=== PATIENT | male | born 1960 | race Caucasian/White ===

== ENCOUNTER 2016-08-08 19:35 | Inpatient (IN) | payer BC ==
[2016-08-08] VITALS (10 sets, daily range): BP systolic 83–125; BP diastolic 50–72; PULSE 109–113; RESP 13–29; TEMP 97.9; O2SAT 94–97; Ht 172.7 cm; Wt 139.5 kg
[~2016-08-08] VITALS: Ht 172.7 cm; Wt 139.5 kg
[~2016-08-08 19:35] MED LIST: CHOL100047 PO; FENTANYL 100mcg/2ml INJECTION IV ONE; FLEC50TA2 PO; FURO40TA5 PO; INSU100V8 SQ; L.AC1CAP6 PO; MIDAZOLAM 2mg/2ml INJECTION IV ONE; NITR0.4T39 SL; PIOG45TA PO; POTA-81 PO; POTA10TA9 PO; REPA2TAB11 PO; RIVA20TA PO; SALINE FLUSH 10ml SYRINGE IVF ONE; SIMV40TA5 PO; SITA100T12 PO; THIA100T8 PO; UVA URSI PO
--- OUTSIDE RECORDS SUMMARY | 2016-08-08 19:39 | XMS REPORT | Continuity of Care Document ---
Author Author [facility] Organization [facility] Address Unknown Phone Unavailable Support Name Relationship Address Phone MICHELE MULLINS MD Caregiver [address] [place] [address] [place] [address] Unavailable Trudy ALVARENGA MD Caregiver [address] [place] [address] Unavailable JAQUAN STOVALL Next Of Kin [address] [place] [address] Insurance Providers Guarantor Guy Trevino Address [address] [place] [address] Email [email or web address] [facility] Policy Number [id number] Subscriber's Name Guy Trevino Relationship 18 Self Group Number [id number] Advance Directives Directive Response Recorded Date/Time Ordered Resuscitation Status Full Code 09/02/15 6:52am DPOA for Healthcare Only No 09/02/15 6:11am Problems Active Problems Medical Problem Onset Date Status Atrial fibrillation with RVR Unknown Resolved Diabetes mellitus type 2, controlled, without complications Unknown Chronic HTN (hypertension) Unknown Chronic Hyperlipemia Unknown Chronic Lymphedema of both lower extremities Unknown Chronic Morbid obesity due to excess calories Unknown Chronic Paroxysmal atrial fibrillation Unknown Resolved Tricuspid valve regurgitation Unknown Chronic Medications Current Home Medications Medication Dose Units Route Directions Days Qty Instructions Start Date Cholecalciferol (Vitamin D3) (Vitamin D) Unknown Strength Tablet Unknown Dose Oral Daily 06/16/15 Flecainide Acetate 50 Mg Tablet 50 Mg Oral Twice A Day 30 Days 10/09 Furosemide 40 Mg Tablet 40 Mg Oral Daily 06/16/15 Insulin Glargine,Hum.rec.anlog (Lantus) 100 Unit/Ml Inj 30 Unit Sub-Q Bedtime 06/16/15 L.acidoph & Paracasei,B.lactis (Probiotic) 1 Each Capsule 1 Cap Oral Daily 06/16/15 Nitroglycerin 0.4 Mg Tab.subl 0.4 Mg Sublingual as needed for Chest Tightness 09/01/15 Pioglitazone Hcl (Actos) 45 Mg Tablet 1 Tab Oral Daily 09/01/15 Potassium Chloride 20 Meq Tablet.er 20 Meq Oral Give With Breakfast Take 1 tablet, by mouth, daily with breakfast. 09/02/15 Potassium Citrate (Urocit-K) 10 Meq Tablet 1 Tab Oral Three Times A Day 90 Tablet 07/01/15 Repaglinide 2 Mg Tablet 4 Mg Oral Three Times A Day 06/16/15 Rivaroxaban (Xarelto) 20 Mg Tablet 20 Mg Oral Give With Supper 30 Tablet 06/18/15 Simvastatin 40 Mg Tablet 40 Mg Oral Daily 06/16/15 Sitagliptin Phosphate (Januvia) 100 Mg Tablet 100 Mg Oral Bedtime 06/16/15 Thiamine Hcl (Vitamin B-1) 100 Mg Tablet 1 Tab Oral Twice A Day 09/01/15 Uva Ursi 1 Cap Oral As Needed 09/01/15 Past Home Medications Medication Directions Ordered Status Aspirin 81 Mg Tab.chew, 81 Mg Perfusion Daily 06/16/15 Discontinued Potassium Chloride 20 Meq Tab.er.prt, 20 Meq Oral Daily 06/16/15 Discontinued Potassium Citrate 10 Meq Tablet.er, 10 Meq Oral Three Times A Day 06/16/15 Discontinued Potassium Citrate (Urocit-K) 10 Meq Tablet, 10 Meq Oral Three Times A Day Discontinued Sotalol Hcl (Betapace) 80 Mg Tablet, 40 Mg Oral Before Meals Twice A Day Discontinued Social History Social History Problem Response Recorded Date/Time Onset Date Status Hx Substance Use No 09/01/2015 10:14am Not Applicable Not Applicable Hx Alcohol Use Y BEER OCCASIONALLY 09/01/2015 10:14am Not Applicable Not Applicable Has the pt used tobacco in the last 12 months No 09/01/2015 10:14am Not Applicable Not Applicable Tobacco Usage none 06/16/2015 9:19pm Not Applicable Not Applicable Query Response Start Date Stop Date Smoking Status Never smoker Hospital Discharge Instructions Instructions: Care Instructions: Reason for Hospitalization: Precordial pain, left heart catherization no PCI I was in the hospital because (patient own words): heart cath Discharge Diet: Resume regular diet Discharge Activity: See [facility] Heart Cath Trans Radial instructions. Follow Up Appointments: Follow up with Dr. Mullins in the office on 09/29/15 at 10:[address] Uribe office for the referrel appointment time for an file clerk to discusse ablation for atrial fibrillation - Dr. Mulilns's office will call patient with a date and time of appointment with [facility] Administrator. Make sure patient takes Heart Catheterization Disk. Pending Lab / Results: No Pending Lab Wound/Incision Care: You may remove the dressing tomorrow, Keep your wrist straight fo 48 hours, no bending Notify Physician If: Any concerns Condition at time of discharge: Good Plan of Care Discharge Date 09/02/15 11:30am Instructions/Education Provided [facility] Heart Cath Trans Rad Prescriptions See Medication Section Functional Status Query Response Date Recorded Mobility Status Ambulatory September 02, 2015 7:12am Assistive Devices None September 02, 2015 7:12am Activity Limitations None September 02, 2015 7:12am Feeding Ability Independent September 02, 2015 7:12am Toileting Ability Independent September 02, 2015 7:12am Grooming Ability Independent September 02, 2015 7:12am Dressing Ability Independent September 02, 2015 7:12am Driving Ability Independent September 02, 2015 7:12am Housework Ability Independent September 02, 2015 7:12am Meal Preparation Ability Independent September 02, 2015 7:12am Stair Climbing Ability Independent September 02, 2015 7:12am Ability to complete ADL's impeded by No change September 02, 2015 7:12am Cognitive/Perceptual Impairments None September 02, 2015 7:12am Visual Assistive Devices Glasses With patient September 02, 2015 7:12am Preferred Method of Learning Reading Listening September 02, 2015 7:12am Allergies, Adverse Reactions, Alerts Allergen Type Severity Reaction Status Last Updated Sulfa (Sulfonamide Antibiotics) Allergy Severe ANAPHYLAXIS Active 07/01/15 Immunizations Query Response on File Recorded Date/Time Hx Influenza Vaccination Y fall09/01/15 10:14am Hx Pneumococcal Vaccination Y 2004 UNSURE OF MONTH 09/01/15 10:14am Hx Influenza Vaccination Y fall09/01/15 10:14am Influenza Vaccine Hx NO 06/16/15 7:12pm Vital Signs Acute Vital Signs Vital Response Date/Time Temperature (Fahrenheit) 97.7 deg F (96.8 - 99.1) 09/02/2015 8:45am Temperature (Calculated Celsius) 36.20161 degrees C (36.0 - 37.3) 09/02/2015 8:45am Temperature Source Oral 09/02/2015 8:45am Pulse Rate (adult) 67 bpm (60 - 100) 09/02/2015 10:45am Respiratory Rate 16 breaths/min (10 - 20) 09/02/2015 10:45am O2 Sat by Pulse Oximetry 96 % (90 - 100) 09/02/2015 10:45am Oxygen Delivery Method Room Air 09/02/2015 10:45am Oxygen Delivery Method Room Air 09/02/2015 6:06am Oxygen Flow Rate 1.00 L/min 06/18/2015 4:45pm Blood Pressure 110/66 mm Hg 09/02/2015 10:45am Blood Pressure Source Automatic Cuff 09/02/2015 10:45am Height (Feet) 5 feet 09/02/2015 6:08am Height (Inches) 8.00 inches 09/02/2015 6:08am Weight (Kilograms) 154.300 kg 09/02/2015 7:05am Body Mass Index (BMI) 51.7 09/02/2015 6:08am Results Laboratory Results Test Name Result Units Flags Reference Collection Date/Time Result Date/ Time Comments Prothromb Time International Ratio 0.95 0.81-1.09 06/16/2015 6:40pm 06/16/2015 6:56pm THERAPUTIC RANGE=2.00-3.00 FOR ANTI-THROMBOSIS THERAPUTIC RANGE=2.50-3.50 FOR IMPLANTED VALVE Activated Partial Thromboplast Time 31.9 SEC 24-36 06/16/2015 6:40pm 6:56pm Troponin I < 0.012 ng/ml 0-0.12 06/17/2015 12:38pm 06/17/2015 1:18pm Troponin values with a difference of 55% increase from orginal troponin value represent a true biological DELTA value. (%increase Calc=Orginal Troponin value, divided by subsequent Troponin value, multiplied by 100) KS-Gph-L-Type Natriuretic Peptide 83 PG/ML 0-175 06/16/2015 6:40pm 7:10pm Rule in cut points: <50 years old=450; 50-75 years old=900; >75 years old=1800; When utilizing ProBNP rule-in cut points, adjustment for impaired renal function is typically not required. Hemoglobin A1c 7.1 % 6.1-7.9 06/16/2015 6:40pm 06/16/2015 8:33pm <6.0 NON-DIABETIC RANGE 6.1-7.9 [facility] TARGET RANGE >8.0 ACTION SUGGESTED Total Bilirubin 1.70 MG/DL H 0.20-1.30 07/01/2015 10:53am 07/01/2015 11: 25am Alkaline Phosphatase 43 U/L 38-126 07/01/2015 10:53am 07/01/2015 11: 25am Total Protein 6.5 G/DL 6.3-8.2 07/01/2015 10:53am 07/01/2015 11:25am Albumin 3.9 G/DL 3.5-5.0 07/01/2015 10:53am 07/01/2015 11:25am Globulin 2.6 G/DL 2.4-3.6 07/01/2015 10:53am 07/01/2015 11:25am Albumin/Globulin Ratio 1.5 RATIO 1.1-2.2 07/01/2015 10:53am 07/01/2015 11:25am Aspartate Amino Transf (AST/SGOT) 27 U/L 17-59 07/01/2015 10:53am 06/30 11:25am Alanine Aminotransferase (ALT/SGPT) 40 U/L 21-72 07/01/2015 10:53am 08/2015 11:25am Magnesium Level 2.1 MG/DL 1.6-2.3 07/01/2015 10:53am 07/01/2015 11: 25am Free Thyroxine 0.88 NG/DL 0.78-2.19 07/01/2015 10:53am 07/01/2015 11: 44am Thyroid Stimulating Hormone (TSH) 1.30 MIU/L 0.47-4.68 07/01/2015 10: 53am 07/01/2015 11:54am Glucometer 159 mg/dL H 75-110 07/01/2015 8:29pm 07/01/2015 8:40pm White Blood Count 7.4 T/MM3 4.5-11.0 09/02/2015 7:13am 09/02/2015 7: 32am Red Blood Count 5.44 M/MM3 4.50-5.90 09/02/2015 7:09/02/2015 7: 32am Hemoglobin 16.3 GM/DL 13.5-17.5 09/02/2015 7:09/02/2015 7:32am Hematocrit 48.2 % 41-53 09/02/2015 7:09/02/2015 7:32am Mean Corpuscular Volume 88.6 UM3 80-100 09/02/2015 7:09/02/2015 7: 32am Mean Corpuscular Hemoglobin 30.0 UUG 26-34 09/02/2015 7:2015 7:32am Mean Corpuscular Hemoglobin Concent 33.8 GM/DL 31-37 09/02/2015 7:09/02/2015 7:32am RDW Standard Deviation 42.5 FL 36.9-50.2 09/02/2015 7:09/02/2015 7 :32am Platelet Count 162 T/MM3 130-400 09/02/2015 7:09/02/2015 7:32am Mean Platelet Volume 10.7 UM3 9.4-12.4 09/02/2015 7:09/02/2015 7: 32am Neutrophils (%) (Auto) 57.4 % 33-66 09/02/2015 7:09/02/2015 7: 32am Lymphocytes (%) (Auto) 33.1 % 23-45 09/02/2015 7:09/02/2015 7: 32am Monocytes (%) (Auto) 6.8 % 0-9.0 09/02/2015 7:09/02/2015 7:32am Eosinophils (%) (Auto) 2.3 % 0-4 09/02/2015 7:09/02/2015 7:32am Basophils (%) (Auto) 0.3 % 0-2 09/02/2015 7:09/02/2015 7:32am Immature Granulocyte % (Auto) 0.1 % 0.0-0.5 09/02/2015 7:2015 7:32am Absolute Neutrophils (auto) 4.3 T/MM3 1.8-7.7 09/02/2015 7:2015 7:32am Absolute Lymphocytes (auto) 2.5 T/MM3 1-4.8 09/02/2015 7:2015 7:32am Absolute Monocytes (auto) 0.5 T/MM3 0-0.8 09/02/2015 7:09/02/2015 7:32am Absolute Eosinophils (auto) 0.2 T/MM3 0-0.5 09/02/2015 7:2015 7:32am Absolute Basophils (auto) 0.0 T/MM3 0-0.2 09/02/2015 7:09/02/2015 7:32am Absolute Immature Granulocyte (auto 0.01 T/MM3 0.00-0.03 09/02/2015 7: 09/02/2015 7:32am Icterus Index < 2 0-7 09/02/2015 7:09/02/2015 7:55am Chemistry Specimen Hemolysis < 15 0-25 09/02/2015 7:09/02/2015 7 :55am 0-25: Specimen Exhibited No Hemolysis. Turbidity < 20 0-20 09/02/2015 7:09/02/2015 7:55am Sodium Level 143 MEQ/L 134-144 09/02/2015 7:09/02/2015 7:55am Potassium Level 4.0 MEQ/L 3.6-5 09/02/2015 7:09/02/2015 7:55am Chloride Level 109 MEQ/L H 98-107 09/02/2015 7:09/02/2015 7:55am Carbon Dioxide Level 24 MEQ/L 22-30 09/02/2015 7:09/02/2015 7: 55am Anion Gap 10 MEQ/L 5-15 09/02/2015 7:09/02/2015 7:55am Blood Urea Nitrogen 17.0 MG/DL 9-20 09/02/2015 7:09/02/2015 7: 55am Creatinine 0.8 MG/DL 0.8-1.5 09/02/2015 7:09/02/2015 7:55am BUN/Creatinine Ratio 21 RATIO 6-26 09/02/2015 7:09/02/2015 7:55am Glomerular Filtration Rate Calc 100 09/02/2015 7:09/02/2015 7: 55am Glucose Level 143 MG/DL H 75-110 09/02/2015 7:13am 09/02/2015 7:55am Calculated Osmolality 279 MOSM/KG 261-280 09/02/2015 7:13am 09/02/2015 7:55am Calcium Level 9.1 MG/DL 8.4-10.2 09/02/2015 7:13am 09/02/2015 7:55am Procedures Procedure Status Date Provider(s) ECHO TRANSESOPHAGEAL Completed 06/17/15 MICHELE MULLINS MD CARDIOVERSION ELECTRIC EXT Completed 06/17/15 MICHELE MULLINS MD ULTRASONOGRAPHY OF RIGHT AND LEFT HEART, TRANSESOPHAGEAL Completed 06/17/15 MICHELE MULLINS MD SPIRITISM OF CARDIAC RHYTHM, SINGLE Completed 06/17/15 MICHELE MULLINS MD ROUTINE VENIPUNCTURE Completed 07/01/15 COMPREHEN METABOLIC PANEL Completed 07/01/15 REAGENT STRIP/BLOOD GLUCOSE Completed 07/01/15 ASSAY OF MAGNESIUM Completed 07/01/15 ASSAY OF FREE THYROXINE Completed 07/01/15 ASSAY THYROID STIM HORMONE Completed 07/01/15 COMPLETE CBC W/AUTO DIFF WBC Completed 07/01/15 ELECTROCARDIOGRAM TRACING Completed 07/01/15 ELECTROCARDIOGRAM TRACING Completed 07/01/15 THER/PROPH/DIAG INJ SC/IM Completed 07/01/15 INITIAL OBSERVATION CARE Completed 07/01/15 INITIAL OBSERVATION CARE Completed 07/01/15 INITIAL OBSERVATION CARE Completed 07/01/15 INITIAL OBSERVATION CARE Completed 07/01/15 401266"INJECTION, INSULIN, PER 5 UNITS" Completed 07/01/15 Encounters Encounter Location Arrival/Admit Date Discharge/Depart Date Attending Provider Departed Clinic [facility] 09/02/15 5:50am 09/02/15 11:30am MICHELE MULLINS MD Discharged Inpatient (obs) [facility] 07/01/15 7:49am 07/02/15 2: 08pm MICHELE MULLINS MD Discharged Inpatient [facility] 06/17/15 3:14pm 06/18/15 5:10pm KENIA CHRISTY MD
--- OUTSIDE RECORDS SUMMARY | 2016-08-08 19:39 | XMS REPORT ---
Author Author Maureen Garcia [facility] eClinicalWorks Address Unknown Phone Unavailable Care Team Providers Care Residential Mortgage Underwriter Name Role Phone Maureen Garcia CP Unavailable Allergies No Known Allergies Problems Problem Type Condition Code Onset Dates Condition Status Problem Atrial fibrillation I48.91 Active Medications No Known Medications Results No Known Results Summary Purpose eClinicalWorks Submission
--- OUTSIDE RECORDS SUMMARY | 2016-08-08 19:39 | XMS REPORT ---
Author Author Maureen Garcia Organization [employer] Address Unknown Phone Unavailable Care Team Providers Care Division Chief Name Role Phone Maureen Garcia CP Unavailable Allergies No Known Allergies Problems Problem Type Condition Code Onset Dates Condition Status Problem Atrial fibrillation I48.91 Active Medications No Known Medications Results No Known Results Summary Purpose eClinicalWorks Submission
--- OUTSIDE RECORDS SUMMARY | 2016-08-08 19:40 | XMS REPORT ---
Author Author Maureen Garcia Organization [employer] Address Unknown Phone Unavailable Care Team Providers Care Eligibility Worker Name Role Phone Maureen Garcia CP Unavailable Allergies No Known Allergies Problems Problem Type Condition Code Onset Dates Condition Status Problem Atrial fibrillation I48.91 Active Medications No Known Medications Results No Known Results Summary Purpose eClinicalWorks Submission
--- OUTSIDE RECORDS SUMMARY | 2016-08-08 19:40 | XMS REPORT ---
Author Author Maureen Garcia [facility] e[employer] Address Unknown Phone Unavailable Care Team Providers Care Bricklayer Supervisor Name Role Phone Maureen Garcia CP Unavailable Allergies, Adverse Reactions, Alerts Substance Reaction Event Type Sulfa anaphylaxis Drug Allergy Problems Problem Type Condition Code Onset Dates Condition Status Assessment Atrial fibrillation I48.91 Active Assessment High risk medication use Z79.899 Active Problem Atrial fibrillation I48.91 Active Assessment Chronic anticoagulation Z79.01 Active Medications Medication Code System Code Instructions Start Date End Date Status Dosage Flecainide Acetate [facility] [address]-33 50 MG Orally Twice a day 1 tablet Potassium Chloride ER [facility] [address]-89 20 MEQ Orally Once a day 1 tablet with food Lasix [facility] [address]-40 40 MG Orally Once a day [address] [facility] [address]-26 100 UNIT/ML Subcutaneous not defined Nitroglycerin [facility] [address]-79 0.4 MG Sublingual not defined Zocor [facility] [address]-69 40 MG Orally Once a day 1 tablet in the evening Xarelto [facility] [address]-19 20 MG Orally Once a day 1 tablet with food Victoza [facility] [address]-92 18 MG/3ML Subcutaneous Once a day 0.2 ml MetFORMIN HCl ER [facility] [address]-44 750 MG Orally Twice a day 1 tablet with evening meal Urocit-K [address] [facility] [address]-95 10 MEQ (1080 MG) Orally Three times a day 1 tablet Procedures Procedure Coding System Code Date Office Visit, Est Pt., Level 4 CPT-4 50550 Jan 14, 2016 ELECTROCARDIOGRAM, COMPLETE CPT-4 30163 Jan 14, 2016 Vital Signs Date/Time: Jan 14, 2016 BMI 49.44 Index Weight 325.2 lbs Height 68 in Cardiac Monitoring Heart Rate 90 /min Oximetry 97 % Blood Pressure Diastolic 60 mm Hg Blood Pressure Systolic 130 mm Hg Results Name Result Date Reference Range Unit Abnormality Flag AtriaECW Summary Purpose eClinicalWorks Submission
--- OUTSIDE RECORDS SUMMARY | 2016-08-08 19:40 | XMS REPORT ---
Author Author Maureen Garcia [facility] eClinicalWorks Address Unknown Phone Unavailable Care Team Providers Care Mucking Machine Operator Name Role Phone Maureen Garcia CP Unavailable Allergies, Adverse Reactions, Alerts Substance Reaction Event Type Sulfa anaphylaxis Drug Allergy Problems Problem Type Condition Code Onset Dates Condition Status Assessment Atrial fibrillation I48.91 Active Assessment High risk medication use Z79.899 Active Problem Atrial fibrillation I48.91 Active Assessment Chronic anticoagulation Z79.01 Active Medications Medication Code System Code Instructions Start Date End Date Status Dosage Januvia [facility] [address]-19 100 MG Orally Once a day 1 tablet Zocor [facility] [address]-67 40 MG Orally Once a day 1 tablet in the evening Lantus [facility] [address]-91 100 UNIT/ML Subcutaneous not defined Potassium Chloride ER [facility] [address]-33 20 MEQ Orally Once a day 1 tablet with food Urocit-K 10 [facility] [address]-86 10 MEQ (1080 MG) Orally Three times a day 1 tablet Xarelto [facility] [address]-97 20 MG Orally Once a day 1 tablet with food Actos [facility] [address]-52 45 MG Orally Once a day 1 tablet Lasix [facility] [address]-63 40 MG Orally Once a day 1 tablet Nitroglycerin [facility] [address]-65 0.4 MG Sublingual not defined Flecainide Acetate [facility] [address]-65 50 MG Orally Twice a day 1 tablet Prandin [facility] [address]-65 2 MG Orally tid 2 tablets Vitamin B-1 [facility] [address]-39 100 MG Orally Once a day 1 tablet Procedures Procedure Coding System Code Date Office Visit, Est Pt., Level 4 CPT-4 09573 October 22, 2015 ELECTROCARDIOGRAM, COMPLETE CPT-4 64554 October 22, 2015 Vital Signs Date/Time: October 22, 2015 BMI 52.45 Index Weight 345 lbs Height 68 in Cardiac Monitoring Heart Rate 81 /min Oximetry 96 % Blood Pressure Diastolic 64 mm Hg Blood Pressure Systolic 116 mm Hg Results Name Result Date Reference Range Unit Abnormality Flag AtriaECW Summary Purpose eClinicalWorks Submission
--- OUTSIDE RECORDS SUMMARY | 2016-08-08 19:40 | XMS REPORT ---
Author Author Maureen Garcia [facility] eClinicalWorks Address Unknown Phone Unavailable Care Team Providers Care Biofuels Technology Manager Name Role Phone Maureen Garcia CP Unavailable Allergies No Known Allergies Problems Problem Type Condition Code Onset Dates Condition Status Problem Atrial fibrillation I48.91 Active Medications No Known Medications Results No Known Results Summary Purpose eClinicalWorks Submission
[2016-08-08] MEDS ORDERED: DILTIAZEM 25mg/5ml INJECTION IV ONE (19:45)
[2016-08-08] MEDS ORDERED: NORMAL SALINE 1,000 ML IV ONE (19:45)
--- NOTE | 2016-08-08 19:50 | ERPDOC ---
Departure Disposition Decision Date: August 08, 2016 Disposition Decision Time: 21:22 Disposition: 01 DISCHARGED HOME, SELF-CARE Impression Impression Impression: Primary Impression: Atrial fibrillation with RVR Severity: Severe Condition: Improved Seen By: Physician only Referrals: Trudy ALVARENGA MD (Family) Problems/Meds/Labs Reviewed?: Yes Medications reviewed and manag: Yes Follow up care ordered?: Yes Mental Status: Alert Critical Care Note Total Time (mins): 45 Critical Care Spent: [id number] care of pt, Reviewing test results, Discuss the case w/staff, Documenting the MR, Discussion w/ family/DPOA During this visit the pt was: Critically Ill, At Risk of Deterioration HPI - Cardiac General Stated Complaint: HEART ISSUES Time Seen by Provider: 19:36 Source: patient Exam Limitations: no limitations HPI - Cardiac General Initial Comments Patient has had pounding palpitations with tachycardia for at least 2 hours. Similar to atrial fibrillation with RVR in the past, but much more severe. Last year the patient had a similar episode, ended up in the ICU overnight on amiodarone drip, was placed on flecainide, and eventually had ablation and was able to get off all of his medications. Early the patient takes no medications for blood pressure or 8 for ablation. Tubes began when the patient was mowing his lawn this afternoon, he noticed rapid heart rate, shortness of breath, and a pounding in his chest. Patient took one nitroglycerin at home, without relief. Occurred At: home Onset/Timing: Rapid Duration: 1-3 hrs Severity: moderate Location: substernal Nitro Today/Relief: 0.4 mg x 1 Aspirin Today: unknown Associated Symptoms: shortness of breath, DENIES: chest pain, cough, diaphoresis, headaches, loss of appetite, malaise, nausea/vomiting, rash, seizure, syncope, weakness Hx of Similar Symptoms: Yes Allergies: Coded Allergies: Sulfa (Sulfonamide Antibiotics) (Verified Allergy, Severe, ANAPHYLAXIS, 07/01/15) Past History Patient Medical History Problem List Updates: Obesity Past Medical History Metabolic: diabetes ENMT: sleep apnea, snoring Cardiac: A-fib GI: GERD Male: kidney stones Musculoskeletal: osteoarthritis Surgical History General: hernia Cardiac: cardiac cath Reproductive/: other Joint: knee Family History Family PMH: FOUND: CAD, [place], diabetes, hypertension Vaccines Hx Influenza Vaccination: Yes (2012 FALL) Hx Pneumococcal Vaccination: Yes (2004 UNSURE OF MONTH) Social History Smoking Status: Never smoker Does patient use chewing tobac: No Second Hand Exposure: No Substance Use Type: does not use Alcohol Intake: none Review of Systems Constitutional Constitutional: DENIES: appetite decrease, appetite increase, chills, dizziness , fever, weakness ENMT Ears: DENIES: pain Hearing: DENIES: hearing loss, tinnitus Balance: DENIES: vertigo Mouth/Throat: DENIES: change in swallowing, change in voice, hoarsness, painful swallowing, sore throat Cardiovascular Cardiac: chest pain, DENIES: dyspnea on exertion Rhythm/Rate: palpitations, tachycardia, DENIES: irregular beat Vascular: DENIES: atrophy, intermittent claudication, pedal edema, phlebitis Pulmonary Respiratory: DENIES: cough, dyspnea, pleuritic chest pain GI Upper Abdomen: DENIES: dysphagia, heartburn/indigestion, nausea, pain, vomiting Lower Abdomen: DENIES: blood in stool, constipation, diarrhea, pain General: DENIES: burning, dysuria, frequency, pain, urgency Musculoskeletal General: DENIES: cramps, joint pain, joint swelling, pain, weakness Integumentary Skin: DENIES: rash, sores Neurological General: DENIES: headache, numbness, tingling, vertigo, weakness Psychiatric Psychiatric: DENIES: anxiety, depression, nervousness Physical Exam General General Nourishment: well nourished, well developed, appears stated age, no acute distress, obese General Body Habitus: well groomed Vitals and Pain First Documented Vital Signs Date Time Temp Pulse Resp B/P Pulse Ox O2 Delivery O2 Flow Rate FiO2 08/08/16 19:35 97.6 212 18 94 Room Air Weight: Kilograms: Height (feet): 5 Height (inches): 8.00 Triage Pain Scale: RN VS reviewed by Provider: Yes Normal Exams: Head: Normocephalic w/o trauma Eyes: Pupils are PERRLA w/ EOMI, No scleral icterus, irritation, or foreign bodies noted ENMT: No facial trauma, nasal exudates, pharyngeal erythema, or exudates are noted Neck: Full range of motion, without adenopathy, JVD, bruits or thyromegaly Abdomen: Bowel sounds positive, soft, non-tender, non-distended, no hepatosplenomegaly, masses or bruits noted Lymphatic: No lymphadenopathy, or lymphedema noted Musculoskeletal: No tenderness, or deformity noted, good range of motion, all extremities Integumentary: No rashes, hives, or bruising noted, hair and nails, without abnormality Neurologic: Patient is alert, and oriented, cranial nerves, motor/sensory/ cerebellar, exams w/o gross deficits, to observation Psychiatric: Patient exhibits, appropriate attention, emotion and affect Cardiovascular (brief) Cardiac: NOT FOUND: click, gallop, murmur, pedal edema, regular rate, regular rhythm (irregularly irregular tachycardia) Capillary Refill: <2 sec Pulses: all distal extremities, equal, strong Abdomen (brief) Abdominal Brief: FOUND: bowel normo active x4, soft, NOT FOUND: distended, hepatosplenomegaly, tender Progress Results/Orders Orders Procedure Category Date Status Time Iv Lock (Ed Only) EDM 08/08/16 Transmitted 19:43 Cbc W/Auto LAB 08/08/16 Complete Diff-Reflex Manual Cmp - Comprehensive LAB 08/08/16 Complete Metabolic EKG EKG 08/08/16 Taken Troponin I W LAB 08/08/16 Complete Hemolysis Index Diltiazem (Cardizem*) PHA 08/08/16 Complete Iv Bolus (Cardizem 19:45 Normal Saline (Normal PHA 08/08/16 Complete Saline Iv) 19:45 EKG EKG 08/08/16 Logged Lab Results Laboratory Tests Test 08/08/16 19:58 White Blood Count 10.5T/MM3 Red Blood Count 5.44M/MM3 Hemoglobin 16.3GM/DL Hematocrit 46.6% Mean Corpuscular Volume 85.7UM3 Mean Corpuscular Hemoglobin 30.0UUG Mean Corpuscular Hemoglobin Concent 35.0GM/DL RDW Standard Deviation 41.1FL Platelet Count 260T/MM3 Mean Platelet Volume 10.3UM3 Immature Granulocyte % (Auto) 0.3% Neutrophils (%) (Auto) 63.6% Lymphocytes (%) (Auto) 27.9% Monocytes (%) (Auto) 6.1% Eosinophils (%) (Auto) 1.8% Basophils (%) (Auto) 0.3% Absolute Immature Granulocyte (auto 0.03T/MM3 Absolute Neutrophils (auto) 6.7T/MM3 Absolute Lymphocytes (auto) 2.9T/MM3 Absolute Monocytes (auto) 0.6T/MM3 Absolute Eosinophils (auto) 0.2T/MM3 Absolute Basophils (auto) 0.0T/MM3 Turbidity < 20 Sodium Level 146MEQ/L Potassium Level 4.1MEQ/L Chloride Level 108MEQ/L Carbon Dioxide Level 22MEQ/L Anion Gap 16MEQ/L Blood Urea Nitrogen 17.0MG/DL Creatinine 1.3MG/DL Glomerular Filtration Rate Calc 57 BUN/Creatinine Ratio 13RATIO Glucose Level 216MG/DL Calculated Osmolality 290MOSM/KG Calcium Level 9.5MG/DL Total Bilirubin 1.50MG/DL Icterus Index < 2 Aspartate Amino Transf (AST/SGOT) 32U/L Alanine Aminotransferase (ALT/SGPT) 47U/L Alkaline Phosphatase 69U/L Troponin I 0.022ng/ml Total Protein 6.9G/DL Albumin 4.4G/DL Globulin 2.5G/DL Albumin/Globulin Ratio 1.8RATIO Chemistry Specimen Hemolysis 34 Medications Current ED Medications Diltiazem HCl 25 mg 25 mg O ONCE IV Last administered on 08/08/16 19:46; Start 08/08/16 at 19:45; Stop 08/08/16 at 19:46; Status DC Sodium Chloride (Normal Saline IV) 1,000 ml @ 0 mls/hr Q0M ONCE IV Last administered on 08/08/16 19:55; Start 08/08/16 at 19:45; Stop 08/08/16 at 19:46 ; Status DC Progress Progress EKG shows atrial fibrillation with rapid ventricular rate in the 200s. Patient given Cardizem 125 mg IV, 1 L normal saline IV fluid bolus -heart rate much improved but, with initial hypotension that improved as pulse normalized and IV fluids infused CBC - n CMP - n Troponin - n Patient has remained in atrial flutter/tachycardia with improved but persistent rapid ventricular response Case is discussed with Dr. Ayala who would like the patient placed in the CCU tonight, placed on a Cardizem drip at 15 mg/h, given one dose of Lovenox and one dose of digoxin. CECIL GALLARDO MD August 08, 2016 19:50
[2016-08-08 20:08] LABS: BASOPHILS % (AUTO) 0.3 % (0-2); EOSINOPHILS # (AUTO) 0.2 T/MM3 (0-0.5); EOSINOPHILS % (AUTO) 1.8 % (0-4); HCT - HEMATOCRIT 46.6 % (41-53); HGB - HEMOGLOBIN 16.3 GM/DL (13.5-17.5); IMMATURE GRANULOCYTE # (AUTO) 0.03 T/MM3 (0.00-0.03); IMMATURE GRANULOCYTE % (AUTO) 0.3 % (0.0-0.5); LYMPHOCYTES # (AUTO) 2.9 T/MM3 (1-4.8); LYMPHOCYTES % (AUTO) 27.9 % (23-45); MEAN CORPUSCULAR VOLUME 85.7 UM3 (80-100); MEAN PLATELET VOLUME 10.3 UM3 (9.4-12.4); MONOCYTES # (AUTO) 0.6 T/MM3 (0-0.8); MONOCYTES % (AUTO) 6.1 % (0-9.0); NEUTROPHILS #(AUTO)-ABSOLUTE 6.7 T/MM3 (1.8-7.7); NEUTROPHILS % (AUTO) 63.6 % (33-66); RED BLOOD COUNT 5.44 M/MM3 (4.50-5.90); WBC - WHITE BLOOD COUNT 10.5 T/MM3 (4.5-11.0)
[2016-08-08 20:14] LABS: ALBUMIN 4.4 G/DL (3.5-5.0); ALBUMIN/GLOBULIN RATIO 1.8 RATIO (1.1-2.2); ALKALINE PHOSPHATASE 69 U/L (38-126); ALT (SGPT) 47 U/L (21-72); ANION GAP 16 MEQ/L (5-15); AST (SGOT) 32 U/L (17-59); BUN/CREATININE RATIO 13 RATIO (6-26); CALCIUM 9.5 MG/DL (8.4-10.2); CHLORIDE 108 MEQ/L (98-107); CO2 - CARBON DIOXIDE 22 MEQ/L (22-30); CREATININE 1.3 MG/DL (0.8-1.5); GLOMERULAR FILTRATION RATE 57; GLUCOSE 216 MG/DL (75-110); POTASSIUM 4.1 MEQ/L (3.6-5); SODIUM 146 MEQ/L (134-144); TOTAL PROTEIN 6.9 G/DL (6.3-8.2)
[2016-08-08] MEDS ORDERED: INSU300I SQ (20:21)
[2016-08-08] MEDS ORDERED: MAGN100T3 PO (20:21)
[2016-08-08] MEDS ORDERED: METF750T2 PO (20:21)
[2016-08-08] MEDS ORDERED: ASPI-1160 PO (20:21)
[2016-08-08] MEDS ORDERED: LIRA0.6P2 SQ (20:21)
--- NOTE | 2016-08-08 20:51 | NUR ---
STATUS PT WENT FROM HEART RATED 212 DOWN TO 112. PT REPORTS FEELING BETTER, BUT STILL HAS CHEST PAIN RATED 2/10
[2016-08-08] MEDS ORDERED: ENOXAPARIN 120 MG/0.8 ML INJECTION SQ ONE (21:30)
[2016-08-08] MEDS ORDERED: DIGOXIN 500mcg/2ml INJECTION IV ONE (21:30)
--- NOTE | 2016-08-08 21:40 | NUR ---
REPORT CALLED REPORT TO MATT VALDOVINOS
--- NOTE | 2016-08-08 21:55 | NUR ---
DEPART PT IS TAKEN BY CART, AND MONITOR TO ICU. ACCOMPANIES. PT REMAINS FREE FROM CHEST PAIN
--- NOTE | 2016-08-08 21:55 | NUR ---
Admit To CCU 5 at this time, in no acute distress, will continue to monitor.
[2016-08-08] MEDS: DILTIAZEM 125 MG in NORMAL SALINE 125 ML IV SCH (22:20)
--- NOTE | 2016-08-08 22:30 | NUR ---
Insulin Jesi NEGRETE with Dr. Ayala gave telephone orders for insulin per pt's home routine, pt verbalizes that he normally takes Novolog 15 units with meals and Toujeo 80 units at HS. No Toujeo stocked in house, pt does not have pen with him. Pt states that he was previously taking Lantus 80 units at HS and would like to have that instead of sending his home for the Toujeo pen. call center specialist pharmacist Jerzy contacted and agrees.
[2016-08-08] MEDS: INSULIN ASPART 100 UNIT/ML SQ SCH (22:39)
[2016-08-08 22:40] LABS: PROBNP 438 PG/ML (0-175)
[2016-08-08] MEDS: INSULIN GLARGINE 100 UNIT/ML SQ SCH (22:43)
[2016-08-09] VITALS (87 sets, daily range): BP systolic 97–182; BP diastolic 51–113; PULSE 69–149; RESP 8–37; TEMP 97.6–98.6; O2SAT 90–99
--- NOTE | 2016-08-09 | NUR ---
CPAP pt states he has sleep apnea but did not bring his CPAP, no issues with o2 thus far, will continue to monitor.
[2016-08-09 05:11] LABS: BASOPHILS % (AUTO) 0.3 % (0-2); EOSINOPHILS # (AUTO) 0.2 T/MM3 (0-0.5); EOSINOPHILS % (AUTO) 2.6 % (0-4); HCT - HEMATOCRIT 43.6 % (41-53); HGB - HEMOGLOBIN 15.1 GM/DL (13.5-17.5); IMMATURE GRANULOCYTE # (AUTO) 0.01 T/MM3 (0.00-0.03); IMMATURE GRANULOCYTE % (AUTO) 0.1 % (0.0-0.5); LYMPHOCYTES # (AUTO) 2.5 T/MM3 (1-4.8); LYMPHOCYTES % (AUTO) 36.1 % (23-45); MEAN CORPUSCULAR HGB 29.9 UUG (26-34); MEAN CORPUSCULAR HGB CONC(MCHC 34.6 GM/DL (31-37); MEAN CORPUSCULAR VOLUME 86.3 UM3 (80-100); MEAN PLATELET VOLUME 10.5 UM3 (9.4-12.4); MONOCYTES # (AUTO) 0.6 T/MM3 (0-0.8); MONOCYTES % (AUTO) 7.8 % (0-9.0); NEUTROPHILS #(AUTO)-ABSOLUTE 3.7 T/MM3 (1.8-7.7); NEUTROPHILS % (AUTO) 53.1 % (33-66); RED BLOOD COUNT 5.05 M/MM3 (4.50-5.90)
[2016-08-09 05:48] LABS: ANION GAP 13 MEQ/L (5-15); BUN/CREATININE RATIO 21 RATIO (6-26); CALCIUM 9.4 MG/DL (8.4-10.2); CHLORIDE 108 MEQ/L (98-107); CO2 - CARBON DIOXIDE 26 MEQ/L (22-30); CREATININE 0.9 MG/DL (0.8-1.5); GLOMERULAR FILTRATION RATE 87; GLUCOSE 83 MG/DL (75-110); MAGNESIUM 2.2 MG/DL (1.6-2.3); POTASSIUM 3.7 MEQ/L (3.6-5); SODIUM 147 MEQ/L (134-144)
[2016-08-09] MEDS: DILTIAZEM 125 MG in NORMAL SALINE 125 ML IV SCH (05:50)
[2016-08-09] MEDS ORDERED: D5NS 1,000 ML IV SCH (09:00)
[2016-08-09] MEDS ORDERED: SALINE FLUSH 10ml SYRINGE ONE (10:29)
--- NOTE | 2016-08-09 11:22 | NUR ---
CM CM IN TO VISIT PATIENT, HE IS A&O. NO FAMILY IS PRESENT AT THIS TIME. PATIENT PLANS TO DISCHARGE HOME, DENIES NEEDS. CM CONTACT INFORMATION PROVIDED. GINOE SCORE IS 4, NO FURTHER FOLLOW UP IS INDICATED. Addendum: 08/09/16 at 1123 by SHAYLEE JUDD RN Amended: Links added.
--- NOTE | 2016-08-09 12:18 | HPPDOC ---
HPI - Adult Date DATE: 08/09/16 TIME: 11:32 General Date of Admission Date of Admission: August 08, 2016 at 21:24 Chief Complaint: atrial fibrillation History of Present Illness Guy is a 55 year old male who is well known to Dr. Ayala who has a history paroxysmal atrial fibrillation. mixed HLD and DM type II who was admitted to CCU last night from the ED with A Fib with RVR. Yesterday afternoon he had pounding palpitations with tachycardia for at least 2 hours. Similar to atrial fibrillation with RVR in the past, but much more severe. It began when the patient was mowing his lawn this afternoon, he noticed rapid heart rate, shortness of breath, and a pounding in his chest. He took one nitroglycerin at home, without relief. He underwent ablation in September of 2015 and has since last 50 pounds because he reports less fatigue. He has not been on antiarrhythmics. He is NPO for JACQUES and possible DCCV later today. Past Medical History Past Medical History Metabolic: diabetes, hypercholesterolemia ENMT: sleep apnea, snoring Cardiac: A-fib GI: GERD Male: kidney stones Neurological: neuropathy Musculoskeletal: osteoarthritis Surgical History General: hernia Cardiac: cardiac cath Reproductive/: other Joint: knee Current Medications Home Meds Reported Medications Aspirin/Calcium Carbonate/Mag (Bufferin 325 mg Tablet) 325 Mg Tablet, 325 MG PO QD 08/08/16 Magnesium Glycinate (Mag Glycinate) 100 Mg Tablet, 1 TAB PO TID 08/08/16 Insulin Glargine,Hum.rec.anlog (Goyo Dai) 300 Unit/1 Ml Insuln.pen, 80 UNIT SQ HS 08/08/16 Liraglutide (Victoza 3-Barry) 0.6 Mg/0.1 Ml Pen.injctr, 1.8 MG SQ QAM, #9 08/08/16 Metformin HCl (Metformin HCl ER) 750 Mg Tablet, 750 MG PO BID 08/08/16 Potassium Chloride (Potassium Chloride) 20 Meq Tablet.er, 20 MEQ PO WB, TAB Take 1 tablet, by mouth, daily with breakfast. 09/02/15 Nitroglycerin (Nitroglycerin) 0.4 Mg Tab.subl, 0.4 MG SL Y for CHEST TIGHTNESS, TAB 09/01/15 Potassium Citrate (Urocit-K) 10 Meq Tablet, 1 TAB PO TID, #90 TAB 3 Refills 07/01/15 L.acidoph & Paracasei,B.lactis (Probiotic) 1 Each Capsule, 1 CAP PO DAILY 06/16/15 Simvastatin (Simvastatin) 40 Mg Tablet, 40 MG PO DAILY 06/16/15 Furosemide (Furosemide) 40 Mg Tablet, 40 MG PO DAILY 06/16/15 Allergies: Coded Allergies: Sulfa (Sulfonamide Antibiotics) (Verified Allergy, Severe, ANAPHYLAXIS, 07/01/15) Family History FOUND: CAD, [place], diabetes, hypertension Vaccines NO 2004 UNSURE OF MONTH Social History Smoking Status: Never smoker Does patient use chewing tobac: No Second Hand Exposure: No Substance Use Type: does not use Alcohol Intake: occasionally Advance Directives: No DPOA for Healthcare Only (HAS BUT HAS NOT REVIEWED, DOESN'T KNOW WHO FOR SURE, POSSIBLY PAL[facility]O ) Review of Systems Constitutional: REPORTS: dizziness, fatigue, DENIES: chills, fever Eyes Vision: REPORTS: vision changes ENMT Hearing: DENIES: tinnitus Balance: DENIES: vertigo Sinuses: NOT FOUND: rhinorrhea Mouth/Throat: DENIES: sore throat Cardiovascular chest pain, dyspnea on exertion, DENIES: murmur Rhythm/Rate: irregular beat, palpitations, tachycardia Pulmonary Respiratory: DENIES: cough, sputum GI Upper Abdomen: DENIES: nausea, vomiting Lower Abdomen: DENIES: diarrhea General: DENIES: dysuria Integumentary Skin: DENIES: rash, sores Neurological General: DENIES: headache, numbness, seizures, syncope, weakness All Other Systems All Other Systems: Reviewed (remainder of 10-point ROS Neg.) Physical Exam General General Nourishment: well nourished, well developed, obese, apparent age Vital Signs Vital Signs Date Time Temp Pulse Resp B/P Pulse Ox O2 Delivery O2 Flow Rate FiO2 08/09/16 09:30 110 24 131/94 96 Room Air 08/09/16 08:00 98.1 Height (Feet): 5 Height (Inches): 8.00 Telemetry Rhythm: Atrial Fibrillation ENMT Brief: FOUND: mucosa moist Neck Brief: NOT FOUND: JVD, carotid bruits Respiratory Brief: FOUND: clear all vasquez, equal bilaterally, NOT FOUND: rales , wheezes Cardiovascular (brief) Cardiac Brief: NOT FOUND: click, gallop, murmur, pedal edema, regular rate, regular rhythm Abdomen (brief) Abdominal Brief: FOUND: BS normo active x4, soft, NOT FOUND: tender Integumentary (brief) Integumentary Brief: FOUND: dry, pink, warm Neurologic RN Documented GCS Eye Opening: Verbal: Motor: Total: Psychiatric (brief) FOUND: alert, attentive, oriented Laboratory Laboratory Tests Test 08/08/16 19:58 08/08/16 22:36 08/09/16 04:45 08/09/16 08:14 White Blood Count 10.5T/MM3 7.0T/MM3 Red Blood Count 5.44M/MM3 5.05M/MM3 Hemoglobin 16.3GM/DL 15.1GM/DL Hematocrit 46.6% 43.6% Mean Corpuscular Volume 85.7UM3 86.3UM3 Mean Corpuscular Hemoglobin 30.0UUG 29.9UUG Mean Corpuscular Hemoglobin Concent 35.0GM/DL 34.6GM/DL RDW Standard Deviation 41.1FL 41.6FL Platelet Count 260T/MM3 186T/MM3 Mean Platelet Volume 10.3UM3 10.5UM3 Immature Granulocyte % (Auto) 0.3% 0.1% Neutrophils (%) (Auto) 63.6% 53.1% Lymphocytes (%) (Auto) 27.9% 36.1% Monocytes (%) (Auto) 6.1% 7.8% Eosinophils (%) (Auto) 1.8% 2.6% Basophils (%) (Auto) 0.3% 0.3% Absolute Immature Granulocyte (auto 0.03T/MM3 0.01T/MM3 Absolute Neutrophils (auto) 6.7T/MM3 3.7T/MM3 Absolute Lymphocytes (auto) 2.9T/MM3 2.5T/MM3 Absolute Monocytes (auto) 0.6T/MM3 0.6T/MM3 Absolute Eosinophils (auto) 0.2T/MM3 0.2T/MM3 Absolute Basophils (auto) 0.0T/MM3 0.0T/MM3 Turbidity < 20 23 Sodium Level 146MEQ/L 147MEQ/L Potassium Level 4.1MEQ/L 3.7MEQ/L Chloride Level 108MEQ/L 108MEQ/L Carbon Dioxide Level 22MEQ/L 26MEQ/L Anion Gap 16MEQ/L 13MEQ/L Blood Urea Nitrogen 17.0MG/DL 19.0MG/DL Creatinine 1.3MG/DL 0.9MG/DL Glomerular Filtration Rate Calc 57 87 BUN/Creatinine Ratio 13RATIO 21RATIO Glucose Level 216MG/DL 83MG/DL Calculated Osmolality 290MOSM/KG 283MOSM/KG Calcium Level 9.5MG/DL 9.4MG/DL Total Bilirubin 1.50MG/DL Icterus Index < 2 < 2 Aspartate Amino Transf (AST/SGOT) 32U/L Alanine Aminotransferase (ALT/SGPT) 47U/L Alkaline Phosphatase 69U/L Troponin I 0.022ng/ml KE-Phj-X-Type Natriuretic Peptide 438PG/ML Total Protein 6.9G/DL Albumin 4.4G/DL Globulin 2.5G/DL Albumin/Globulin Ratio 1.8RATIO Thyroid Stimulating Hormone (TSH) 2.10MIU/L Chemistry Specimen Hemolysis 34 22 Glucometer 121mg/dL 93mg/dL Magnesium Level 2.2MG/DL Test 08/09/16 10:32 Glucometer 100mg/dL EKG A Flutter with RVR, LAD Assessment & Plan Problems: (1) Atrial fibrillation with RVR Status: Acute Assessment & Plan: Given Digoxin and Cardizem IV, Cardizem infusing at 15mg/ hr. JACQUES and possible DCCV later today. 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 MAHAMED LOZANO PEST CONTROL TECHNICIAN August 09, 2016 11:37
--- NOTE | 2016-08-09 13:30 | NUR ---
Cardioversion: the patient is prepped for JACQUES/Cardioversion. See moderate sedation Charting.
--- NOTE | 2016-08-09 14:10 | NUR ---
Status: the patient has tolerated JACQUES/Cardioversion without incident. EKG obtained. He awakens but remains drowsy. His remains at his bedside. O2 remains on at 3l/nc.
[2016-08-09] MEDS ORDERED: NITROGLYCERIN 0.4 MG SUBLINGUAL TABLET SL PRN (15:00)
[2016-08-09] MEDS ORDERED: ASPIRIN, BUFFERED 325 MG TABLET PO SCH (15:00)
[2016-08-09] MEDS: APIXABAN 5 MG TABLET PO SCH ×2 (16:09→20:46)
[2016-08-09] MEDS: SOTALOL 80 MG TABLET PO SCH ×2 (16:09→18:24)
[2016-08-09] MEDS ORDERED: ONDANSETRON ODT 4 MG TAB PO PRN (17:00)
[2016-08-09] MEDS ORDERED: ONDANSETRON 4mg/2ml INJECTION IV PRN (17:00)
--- NOTE | 2016-08-09 17:00 | NUR ---
Status: the patient vomited 400 cc of emesis after eating a sandwich and taking po meds. Christiana Ramos APRN is notified. Will continue with transfer to the surgical unit. Tri thakkarn is ordered. The patient is transferred to [facility] and placed on the in room telemetry. Report is given to Doc GUTIERREZ.
--- NOTE | 2016-08-09 17:07 | NUR ---
Admit to floor Pt transferred to room via wheelchair by LLOYD Shook. VS stable on RA. A&OX3. present upon transfer. Pt denies n/v and pain. Side rails up X2, call light w/in reach, bed alarm on.
[2016-08-09] MEDS ORDERED: INSULIN ASPART 100 UNIT/ML SQ ONE (18:15)
[2016-08-09] MEDS: POTASSIUM CITRATE 10 MEQ TABLET PO SCH (18:23)
[2016-08-09] MEDS: METFORMIN 750 MG PO SCH (18:24)
--- NOTE | 2016-08-09 18:40 | NUR ---
Summary Pt A&OX3. Pt denies nausea and pain at this time. Pt had a good appetite for dinner. to bring Pts CPAP machine back this evening. Side rails up X2, call light w/in reach, bed alarm on.
[2016-08-09] MEDS: INSULIN GLARGINE 100 UNIT/ML SQ SCH (20:45)
[2016-08-09] MEDS: INSULIN ASPART 100 UNIT/ML SQ SCH (20:45)
[2016-08-10 04:05] VITALS: BP_SYST 130; BP_SYST 157; BP_DIAS 73; BP_DIAS 92; PULSE 73; RESP 18; TEMP 97.7
--- NOTE | 2016-08-10 04:24 | NUR ---
SNACK PT CALLED FOR A SNACK THIS AM, THIS RN ASKED THE POLYMER ENGINEER TO CHECK IS BGM AND REPORT BACK TO THIS RN. AIDE NOTIFIED THIS RN THAT THE BGM WAS 57, CRACKERS,PUDDING AND ORANGE JUICE GIVEN. WILL REASSESS BGM IN 30 MINUTES.
[2016-08-10] MEDS: SOTALOL 80 MG TABLET PO SCH (05:33)
--- NOTE | 2016-08-10 05:47 | NUR ---
SHIFT SUMMARY PT IS ALERT AND ORIENTED X3,VITAL SIGNS STABLE ON ROOM AIR. DENIES C/P,N/V AND SOA. PT IS UP ADLIB IN HIS ROOM. BGM RECHECKED AFTER SNACK 121. PT DENIES PAIN. PT HAS HAD ADEQUATE URINE OUTPUT. WILL CONTINUE TO MONITOR.
[2016-08-10 07:19] VITALS: BP 139/80; PULSE 74; RESP 15; TEMP 98.4; O2SAT 96
--- NOTE | 2016-08-10 07:32 | TEEF ---
DATE OF PROCEDURE August 09, 2016 The patient is a 56-year-old gentleman with history of atrial fibrillation/atrial flutter status post ablation who developed atrial fibrillation again of unknown duration and was referred for transesophageal echocardiogram to rule out intracardiac thrombus prior to cardioversion. Informed consent was obtained after explaining the procedure and the potential risks to the patient who agreed to proceed with the procedure. PROCEDURE 1. Transesophageal echocardiogram. 2. DC cardioversion. Conscious sedation was performed using Versed and fentanyl. Cetacaine spray was used for pharyngeal anesthesia. Probe was advanced into the esophagus and images were obtained in multiple planes. Left atrium is dilated. Left ventricle end-diastolic dimension is normal. Left ventricle wall thickness is normal. LV systolic function is normal with ejection fraction of 65%. Right atrium is normal. Right ventricle is normal. Aortic root dimension is normal. Mitral valve is morphologically normal with mild mitral regurgitation. Aortic valve is a trileaflet structure with no stenosis or insufficiency. Tricuspid valve shows mild tricuspid regurgitation. Pulmonary valve shows trace of pulmonary insufficiency. There is no pericardial effusion. There is no thrombus in left atrium, left atrial appendage or left ventricle. Agitated saline was injected which showed bubbles across the interatrial septum suggestive of patent foramen ovale versus small ASD. Descending thoracic aorta appears to be free of significant atherosclerosis. IMPRESSION 1. Left atrial dilation. 2. Normal LV systolic function with ejection fraction of 65%. 3. No intracardiac thrombus or mass. 4. Mild mitral regurgitation. 5. Mild tricuspid regurgitation. 6. Trace of pulmonary insufficiency. 7. Patent foramen ovale versus small ASD. After reviewing the images we decided to proceed with cardioversion. Anterior-posterior Zoll pads were applied. 360 joules of energy was delivered in synchronized manner and patient converted from atrial flutter into sinus rhythm. He tolerated the procedure well with no complications. IMPRESSION 1. Successful DC cardioversion of atrial flutter into sinus rhythm. PLAN Will keep him on anticoagulation and antiarrhythmics and possibly consider referral again for ablation. GWEN
[2016-08-10] MEDS ORDERED: POTASSIUM CHLORIDE 20 MEQ TABLET PO SCH (08:00)
[2016-08-10] MEDS ORDERED: INSULIN ASPART 100 UNIT/ML SQ SCH (08:00)
[2016-08-10] MEDS: POTASSIUM CITRATE 10 MEQ TABLET PO SCH (08:20)
[2016-08-10] MEDS: METFORMIN 750 MG PO SCH (08:20)
[2016-08-10] MEDS: APIXABAN 5 MG TABLET PO SCH (08:20)
[2016-08-10] MEDS ORDERED: ASPIRIN 81 MG CHEWABLE TABLET PO SCH (09:00)
[2016-08-10] MEDS ORDERED: FUROSEMIDE 40 MG TABLET PO SCH (09:00)
[2016-08-10] MEDS ORDERED: LIRAGLUTIDE INJECTABLE PEN SQ SCH (09:00)
[2016-08-10] MEDS ORDERED: ACIDOPH PO SCH (09:00)
[2016-08-10] MEDS ORDERED: PARACASEI B LACTIS PO SCH (09:00)
[2016-08-10] MEDS ORDERED: SOTA80TA20 PO (11:10)
--- NOTE | 2016-08-10 11:29 | NUR ---
SCRIPT SCRIPT X1 CALLED TO [facility] IN [place].
--- NOTE | 2016-08-10 11:29 | NUR ---
DISCHARGE TEACHING DISCHARGE INSTRUCTIONS EXPLAINED TO PATIENT, PACKET PROVIDED TO PATIENT. PT DRESSED, BELONGINGS PACKED, MEDS PACKED AND GIVEN TO PATIENT. PT EATING LUNCH BEFORE DISCHARGE.
--- NOTE | 2016-08-10 12:03 | NUR ---
DISCHARGE IVL DC'D. BELONGINGS AND MEDS SENT WITH PATIENT. PT HELPED OUT VIA WHEELCHAIR. ID BAND REMOVED.
--- NOTE | 2016-08-10 14:27 | DSPDOC ---
General Date Date DATE: 08/10/16 TIME: 14:22 Attending Physician Martin Mullins MD Admitting Physician Martin Mullins MD Consulting Physician Admitting Diagnosis troponin fibrillation with RVR Discharge Diagnosis A Fib RVR Procedures [place] [id number] Name: GUY TREVINO Unit #: [id number] Draft Page 2 of 2 TRANSESOPHAGEAL ECHOCARDIOGRAM Report #: [id number] Dictated By: MARTIN MULLINS MD 08/09/16 1344 Transcribed By: YASMIN GRECO 08/10/16 0731 cc: Trudy ALVARENGA MD~ [place] [phone] [phone] Dictated By: MARTIN MULLINS MD 08/09/16 1344 Transcribed By: YASMIN GRECO 08/10/16 0731 cc: Trudy ALVARENGA MD~ DATE OF PROCEDURE August 09, 2016 The patient is a 56-year-old gentleman with history of atrial fibrillation/ atrial flutter status post ablation who developed atrial fibrillation again of unknown duration and was referred for transesophageal echocardiogram to rule out intracardiac thrombus prior to cardioversion. Informed consent was obtained after explaining the procedure and the potential risks to the patient who agreed to proceed with the procedure. PROCEDURE 1. Transesophageal echocardiogram. 2. DC cardioversion. Conscious sedation was performed using Versed and fentanyl. Cetacaine spray was used for pharyngeal anesthesia. Probe was advanced into the esophagus and images were obtained in multiple planes. Left atrium is dilated. Left ventricle end-diastolic dimension is normal. Left ventricle wall thickness is normal. LV systolic function is normal with ejection fraction of 65%. Right atrium is normal. Right ventricle is normal. Aortic root dimension is normal. Mitral valve is morphologically normal with mild mitral regurgitation. Aortic valve is a trileaflet structure with no stenosis or insufficiency. Tricuspid valve shows mild tricuspid regurgitation. Pulmonary valve shows trace of pulmonary insufficiency. There is no pericardial effusion. There is no thrombus in left atrium, left atrial appendage or left ventricle. Agitated saline was injected which showed bubbles across the interatrial septum suggestive of patent foramen ovale versus small ASD. Descending thoracic aorta appears to be free of significant atherosclerosis. IMPRESSION 1. Left atrial dilation. 2. Normal LV systolic function with ejection fraction of 65%. 3. No intracardiac thrombus or mass. 4. Mild mitral regurgitation. 5. Mild tricuspid regurgitation. 6. Trace of pulmonary insufficiency. 7. Patent foramen ovale versus small ASD. After reviewing the images we decided to proceed with cardioversion. Anterior- posterior Zoll pads were applied. 360 joules of energy was delivered in synchronized manner and patient converted from atrial flutter into sinus rhythm. He tolerated the procedure well with no complications. IMPRESSION 1. Successful DC cardioversion of atrial flutter into sinus rhythm. PLAN Will keep him on anticoagulation and antiarrhythmics and possibly consider referral again for ablation. Laboratory Laboratory Tests Test 08/08/16 19:58 08/08/16 22:36 08/09/16 04:45 08/09/16 08:14 White Blood Count 10.5T/MM3 7.0T/MM3 Red Blood Count 5.44M/MM3 5.05M/MM3 Hemoglobin 16.3GM/DL 15.1GM/DL Hematocrit 46.6% 43.6% Mean Corpuscular Volume 85.7UM3 86.3UM3 Mean Corpuscular Hemoglobin 30.0UUG 29.9UUG Mean Corpuscular Hemoglobin Concent 35.0GM/DL 34.6GM/DL RDW Standard Deviation 41.1FL 41.6FL Platelet Count 260T/MM3 186T/MM3 Mean Platelet Volume 10.3UM3 10.5UM3 Immature Granulocyte % (Auto) 0.3% 0.1% Neutrophils (%) (Auto) 63.6% 53.1% Lymphocytes (%) (Auto) 27.9% 36.1% Monocytes (%) (Auto) 6.1% 7.8% Eosinophils (%) (Auto) 1.8% 2.6% Basophils (%) (Auto) 0.3% 0.3% Absolute Immature Granulocyte (auto 0.03T/MM3 0.01T/MM3 Absolute Neutrophils (auto) 6.7T/MM3 3.7T/MM3 Absolute Lymphocytes (auto) 2.9T/MM3 2.5T/MM3 Absolute Monocytes (auto) 0.6T/MM3 0.6T/MM3 Absolute Eosinophils (auto) 0.2T/MM3 0.2T/MM3 Absolute Basophils (auto) 0.0T/MM3 0.0T/MM3 Turbidity < 20 23 Sodium Level 146MEQ/L 147MEQ/L Potassium Level 4.1MEQ/L 3.7MEQ/L Chloride Level 108MEQ/L 108MEQ/L Carbon Dioxide Level 22MEQ/L 26MEQ/L Anion Gap 16MEQ/L 13MEQ/L Blood Urea Nitrogen 17.0MG/DL 19.0MG/DL Creatinine 1.3MG/DL 0.9MG/DL Glomerular Filtration Rate Calc 57 87 BUN/Creatinine Ratio 13RATIO 21RATIO Glucose Level 216MG/DL 83MG/DL Calculated Osmolality 290MOSM/KG 283MOSM/KG Calcium Level 9.5MG/DL 9.4MG/DL Total Bilirubin 1.50MG/DL Icterus Index < 2 < 2 Aspartate Amino Transf (AST/SGOT) 32U/L Alanine Aminotransferase (ALT/SGPT) 47U/L Alkaline Phosphatase 69U/L Troponin I 0.022ng/ml HN-Ogf-D-Type Natriuretic Peptide 438PG/ML Total Protein 6.9G/DL Albumin 4.4G/DL Globulin 2.5G/DL Albumin/Globulin Ratio 1.8RATIO Thyroid Stimulating Hormone (TSH) 2.10MIU/L Chemistry Specimen Hemolysis 34 22 Glucometer 121mg/dL 93mg/dL Magnesium Level 2.2MG/DL Test 08/09/16 10:32 08/09/16 14:10 08/09/16 19:58 08/10/16 04:15 Glucometer 100mg/dL 128mg/dL 207mg/dL 57mg/dL Test 08/10/16 05:08 08/10/16 10:02 Glucometer 121mg/dL 132mg/dL Laboratory Tests Test 08/09/16 04:45 08/09/16 08:14 08/09/16 10:32 08/09/16 14:10 White Blood Count 7.0T/MM3 (4.5-11.0) Red Blood Count 5.05M/MM3 (4.50-5.90) Hemoglobin 15.1GM/DL (13.5-17.5) Hematocrit 43.6% (41-53) Mean Corpuscular Volume 86.3UM3 (80-100) Mean Corpuscular Hemoglobin 29.9UUG (26-34) Mean Corpuscular Hemoglobin Concent 34.6GM/DL (31-37) RDW Standard Deviation 41.6FL (36.9-50.2) Platelet Count 186T/MM3 (130-400) Mean Platelet Volume 10.5UM3 (9.4-12.4) Immature Granulocyte % (Auto) 0.1% (0.0-0.5) Neutrophils (%) (Auto) 53.1% (33-66) Lymphocytes (%) (Auto) 36.1% (23-45) Monocytes (%) (Auto) 7.8% (0-9.0) Eosinophils (%) (Auto) 2.6% (0-4) Basophils (%) (Auto) 0.3% (0-2) Absolute Immature Granulocyte (auto 0.01T/MM3 (0.00-0.03) Absolute Neutrophils (auto) 3.7T/MM3 (1.8-7.7) Absolute Lymphocytes (auto) 2.5T/MM3 (1-4.8) Absolute Monocytes (auto) 0.6T/MM3 (0-0.8) Absolute Eosinophils (auto) 0.2T/MM3 (0-0.5) Absolute Basophils (auto) 0.0T/MM3 (0-0.2) Turbidity 23 (0-20) Sodium Level 147MEQ/L (134-144) Potassium Level 3.7MEQ/L (3.6-5) Chloride Level 108MEQ/L (98-107) Carbon Dioxide Level 26MEQ/L (22-30) Anion Gap 13MEQ/L (5-15) Blood Urea Nitrogen 19.0MG/DL (9-20) Creatinine 0.9MG/DL (0.8-1.5) Glomerular Filtration Rate Calc 87 BUN/Creatinine Ratio 21RATIO (6-26) Glucose Level 83MG/DL (75-110) Calculated Osmolality 283MOSM/KG (261-280) Calcium Level 9.4MG/DL (8.4-10.2) Magnesium Level 2.2MG/DL (1.6-2.3) Icterus Index < 2 (0-7) Chemistry Specimen Hemolysis 22 (0-25) Glucometer 93mg/dL (75-110) 100mg/dL (75-110) 128mg/dL (75-110) Test 08/09/16 19:58 08/10/16 04:15 08/10/16 05:08 08/10/16 10:02 Glucometer 207mg/dL (75-110) 57mg/dL (75-110) 121mg/dL (75-110) 132mg/dL (75-110) History of Present Illness Guy is a 55 year old male who is well known to Dr. Mullins who has a history paroxysmal atrial fibrillation. mixed HLD and DM type II who was admitted to CCU last night from the ED with A Fib with RVR. Yesterday afternoon he had pounding palpitations with tachycardia for at least 2 hours. Similar to atrial fibrillation with RVR in the past, but much more severe. It began when the patient was mowing his lawn this afternoon, he noticed rapid heart rate, shortness of breath, and a pounding in his chest. He took one nitroglycerin at home, without relief. He underwent ablation in September of 2015 and has since last 50 pounds because he reports less fatigue. He has not been on antiarrhythmics. He is NPO for JACQUES and possible DCCV later today. Objective Vital Signs Vital signs Vital Signs 08/10/16 08/10/16 08/10/16 04:05 05:33 07:19 Temp 97.7 98.4 Pulse 73 76 74 Resp 18 15 B/P 130/73 139/80 Pulse Ox 96 O2 Delivery Room Air Room Air Telemetry Rhythm: Sinus Rhythm Height (Feet): 5 Height (Inches): 8.00 Weight (Kilograms): 139.500 General Alert, Orientated x 3, Cooperative ENMT (Brief) mucosa moist Neck (Brief) NOT FOUND: JVD, carotid bruits Respiratory (Brief) clear all vasquez, equal bilaterally, NOT FOUND: rales, wheezes Cardiovascular (Brief) regular rate, regular rhythm, NOT FOUND: click, gallop, murmur, pedal edema, rub Abdomen (Brief) BS normo active x4, soft, NOT FOUND: tender Integumentary (Brief) dry, pink, warm Psychiatric (Brief) alert, attentive, oriented EKG SR, incomplete RBBB Medications Current Medications Diltiazem HCl 25 mg 25 mg O ONCE IV Last administered on 08/08/16 19:46; Start 08/08/16 at 19:45; Stop 08/08/16 at 19:46; Status DC Sodium Chloride (Normal Saline IV) 1,000 ml @ 0 mls/hr Q0M ONCE IV Last administered on 08/08/16 19:55; Start 08/08/16 at 19:45; Stop 08/08/16 at 19:46 ; Status DC Enoxaparin Sodium (Lovenox) 120 mg O ONCE SQ Last administered on 08/08/16 22 :16; Start 08/08/16 at 21:30; Stop 08/08/16 at 21:31; Status DC Digoxin 500 mcg 500 mcg O ONCE IV Last administered on 08/08/16 22:14; Start 08/08/16 at 21:30; Stop 08/08/16 at 21:31; Status DC Diltiazem HCl/ Sodium Chloride (Cardizem 125 Mg/ 25 ml Injection/ NS) 125 ml @ 15 mls/hr Q8H20M IV Last administered on 08/08/16 22:20; Start 08/08/16 at 21: 30; Stop 08/09/16 at 14:23; Status DC Insulin Glargine 80 unit 80 unit HS SQ Last administered on 08/09/16 20:45; Start 08/09/16 at 22:00; Stop 08/10/16 at 12:28; Status DC Dextrose/Sodium Chloride (D5ns) 1,000 ml @ 75 mls/hr [id number] IV Last administered on 08/09/16 08:53; Start 08/09/16 at 09:00; Stop 08/09/16 at 14:23 ; Status DC Sotalol HCl (Betapace) 40 mg ACBID PO Last administered on 08/10/16 05:33; Start 08/09/16 at 14:00; Stop 08/10/16 at 12:28; Status DC Apixaban (Eliquis) 5 mg BID PO Last administered on 08/10/16 08:20; Start at 14:00; Stop 08/10/16 at 12:28; Status DC Aspirin (ASA) 81 mg DAILY PO Last administered on 08/10/16 08:20; Start at 09:00; Stop 08/10/16 at 12:28; Status DC Aspirin Buffered (Ascriptin) 325 mg QD PO Last administered on 08/09/16 16:09 ; Start 08/09/16 at 15:00; Stop 08/10/16 at 12:28; Status DC Furosemide (Lasix) 40 mg DAILY PO Last administered on 08/10/16 08:20; Start 08/10/16 at 09:00; Stop 08/10/16 at 12:28; Status DC Liraglutide (Victoza) 1.8 mg QAM SQ ; Start 08/10/16 at 09:00; Stop 08/10/16 at 12:29; Status DC Metformin HCl (Glucophage Xr) 750 mg BIDWM PO Last administered on 08/10/16 08 :20; Start 08/09/16 at 17:30; Stop 08/10/16 at 12:29; Status DC Nitroglycerin (Nitrostat) 0.4 mg PRN PRN SL CHEST TIGHTNESS; Start 08/09/16 at 15:00; Stop 08/10/16 at 12:29; Status DC Potassium Chloride (Kdur) 20 meq WB PO Last administered on 08/10/16 08:20; Start 08/10/16 at 08:00; Stop 08/10/16 at 12:29; Status DC Potassium Citrate (Urocit-K) 10 meq TIDWM PO Last administered on 08/10/16 08: 20; Start 08/09/16 at 17:30; Stop 08/10/16 at 12:29; Status DC Simvastatin (Zocor) 40 mg HS PO ; Start 08/10/16 at 22:00; Stop 08/10/16 at 22: 00; Status DC Fentanyl (Fentanyl) 100 mcg STK-MED ONCE IV ; Start 08/08/16 at 12:00; Stop at 15:28; Status DC Midazolam HCl (Versed) 2 mg STK-MED ONCE IV ; Start 08/08/16 at 12:00; Stop at 15:28; Status DC Sodium Chloride (Iv Flush) 10 ml STK-MED ONCE IVF ; Start 08/08/16 at 12:00; Stop 08/09/16 at 15:28; Status DC Ondansetron HCl (Zofran Odt) 4 mg Q6H PRN PO NAUSEA &/OR VOMITING; Start at 17:00; Stop 08/10/16 at 12:29; Status DC Ondansetron HCl (Zofran) 4 mg Q6H PRN IV NAUSEA &/OR VOMITING; Start 08/09/16 at 17:00; Stop 08/10/16 at 12:29; Status DC Insulin Aspart (Novolog) 15 unit TIDWM SQ Last administered on 08/10/16 07:39 ; Start 08/10/16 at 08:00; Stop 08/10/16 at 12:29; Status DC Non-Formulary Medication 1 cap DAILY PO Last administered on 08/10/16 09:00; Start 08/10/16 at 09:00; Stop 08/10/16 at 12:29; Status DC Hospital Course Guy underwent JACQUES with DCCV and successful conversion to SR. He was started on Sotalol for antiarrhythmic therapy and Eliquis for stroke prevention. He was monitored on telemetry overnight and discharged following repeat EKG. Problems: (1) Atrial fibrillation with RVR Status: Acute (2) Hyperlipemia Status: Chronic (3) Diabetes mellitus type 2, controlled, without complications Status: Chronic Code Status Full Code Home Meds Active Scripts Sotalol HCl (Betapace) 80 Mg Tablet, 40 MG PO ACBID for 30 Days, #30 TAB 11 Refills Prov:MAHAMED LOZANO PURCHASING INTERN 08/10/16 Reported Medications Magnesium Glycinate (Mag Glycinate) 100 Mg Tablet, 1 TAB PO TID 08/08/16 Insulin Glargine,Hum.rec.anlog (Goyo Breeneveliakaren) 300 Unit/1 Ml Insuln.pen, 80 UNIT SQ HS 08/08/16 Liraglutide (Victoza 3-Barry) 0.6 Mg/0.1 Ml Pen.injctr, 1.8 MG SQ QAM, #9 08/08/16 Metformin HCl (Metformin HCl ER) 750 Mg Tablet, 750 MG PO BID 08/08/16 Potassium Chloride (Potassium Chloride) 20 Meq Tablet.er, 20 MEQ PO WB, TAB Take 1 tablet, by mouth, daily with breakfast. 09/02/15 Nitroglycerin (Nitroglycerin) 0.4 Mg Tab.subl, 0.4 MG SL Y for CHEST TIGHTNESS, TAB 09/01/15 Potassium Citrate (Urocit-K) 10 Meq Tablet, 1 TAB PO TID, #90 TAB 3 Refills 07/01/15 L.acidoph & Paracasei,B.lactis (Probiotic) 1 Each Capsule, 1 CAP PO DAILY 06/16/15 Simvastatin (Simvastatin) 40 Mg Tablet, 40 MG PO DAILY 06/16/15 Furosemide (Furosemide) 40 Mg Tablet, 40 MG PO DAILY 06/16/15 Discontinued Reported Medications Aspirin/Calcium Carbonate/Mag (Bufferin 325 mg Tablet) 325 Mg Tablet, 325 MG PO QD 08/08/16 Discharge Disposition Discharged to home in the care of himself in good and stable condition with RX for Sotalol and samples of MAHAMED Damian PURCHASING INTERN August 10, 2016 14:26
[2016-08-10] MEDS ORDERED: SIMVASTATIN 40 MG TABLET PO SCH (22:00)
--- NOTE | 2016-08-11 15:31 | NUR ---
CM CM ENTERED CLINICAL INTO AVAILITY. Control Number: [id number] Date Submitted: 08/11/2016 Health Care Services Review Status: Pended - Requires Medical Review
== END 2016-08-10 12:03 | disposition home or self-care (01) | DRG 310 ==
LOC: ED 19:35 → EDHOLD 21:24 → CCU 21:55 → OBSVTOIN 08-09 14:56 → SRG 08-09 17:10
PROVIDERS: ADMIT Internal Medicine Cardiovascular Disease; ATTEND Internal Medicine Cardiovascular Disease
PROC: 5A2204Z Restoration of Cardiac Rhythm, Single (ICD-10-PCS; principal; 2016-08-09)
PROC: B246ZZ4 Ultrasonography of Right and Left Heart, Transesophageal (ICD-10-PCS; 2016-08-09)
DX: I48.0 Paroxysmal atrial fibrillation (principal); E78.2 Mixed hyperlipidemia; E11.9 Type 2 diabetes mellitus without complications; G47.30 Sleep apnea, unspecified; K21.9 Gastro-esophageal reflux disease without esophagitis; M19.91 Primary osteoarthritis, unspecified site; G62.9 Polyneuropathy, unspecified; Z79.4 Long term (current) use of insulin
CPT/HCPCS: 36415; 80048; 80053; 82948; 83735; 83880; 84443; 84484; 85025; 93005; 94770; 96361; 96365; 96366; 96372; 96375; 99218

== ENCOUNTER 2016-11-01 20:41 | Inpatient (IN) ==
[2016-11-01] MEDS ORDERED: NITROGLYCERIN 0.4 MG SUBLINGUAL TABLET SL PRN (20:48)
[2016-11-01] MEDS ORDERED: SALINE FLUSH 10ml SYRINGE IVF PRN (20:48)
[2016-11-01] MEDS ORDERED: NS 1,000 ML IV ONE (20:48)
[2016-11-01] MEDS ORDERED: ASPIRIN 81 MG CHEWABLE TABLET PO ONE (20:48)
--- NOTE | 2016-11-01 20:48 | Emergency Department Report ---
Cardiac General HPI - General Stated Complaint: Fast HR Time Seen by Provider: 11/01/16 20:48 Source: patient, EMS Mode of arrival: EMS Limitations: no limitations - History of Present Illness HPI narrative: Patient is a 56-year-old male, presents emergency room for evaluation of rapid heart rate, chest pressure. Patient's been feeling intermittent chest pressure for the last 3 days, today patient was sitting at home suddenly felt his heart going very rapid rate, patient does have a history of atrial fibrillation with cardioversions 3, and ablation. Patient currently on sotalol for his atrial fibrillation. Patient called EMS patient rapid heart rate of 212, adenosine 6, then adenosine 12 with no relief. Patient brought to the ER for evaluation. Occurred At: home Onset (ago): hour(s) Duration: constant Prior Chest Pain/Cardiac Workup: cardiac cath, other (atrial fibrillation) Aspirin Today: 325 mg x 1, provided at home - Related Data Home Medications Medication Instructions Recorded Confirmed Furosemide 40 mg PO DAILY #0 06/16/15 10/21/16 L.acidoph,Paracasei, B.lactis 1 cap PO BID #0 06/16/15 11/01/16 [Probiotic] Simvastatin 40 mg PO HS #0 06/16/15 11/01/16 Potassium Citrate [Urocit-K] 1 tab PO TID #90 tab 07/01/15 11/01/16 Nitroglycerin 0.4 mg SL PRN PRN #0 tab 09/01/15 11/01/16 Potassium Chloride 20 meq PO DAILY #0 tab 09/02/15 11/01/16 Insulin Glargine,Hum.rec.anlog 80 unit SQ HS #0 08/08/16 11/01/16 [Goyo Dai] Liraglutide [Victoza 3-Barry] 1.8 units SQ QAM #9 08/08/16 11/01/16 Metformin Xr [Glucophage Xr] 750 mg PO BID #0 08/08/16 11/01/16 Insulin Aspart [Novolog] 15 unit SQ TID 09/12/16 11/01/16 Sotalol HCl [Betapace] 0.5 tab PO BID 09/12/16 11/01/16 aspirin 81 mg tablet,delayed 81 mg PO DAILY tab 10/12/16 11/01/16 release Allergies Allergy/AdvReac Type Severity Reaction Status Date / Time Sulfa (Sulfonamide Allergy Severe ANAPHYLAXIS Verified 11/01/16 21:29 Antibiotics) Review of Systems Constitutional: Denies: fever, chills, weakness ENT: Denies: throat pain, dental pain Cardiovascular: Reports: chest pain, palpitations, dyspnea on exertion Respiratory: Denies: dyspnea, wheezes Gastrointestinal: Denies: abdominal pain, nausea, vomiting Genitourinary: Denies: dysuria, frequency Musculoskeletal: Denies: back pain Neurological: Denies: headache, weakness Psychiatric: Denies: anxiety, depression [facility] Patient Stated Medical History Peripheral Neuropathy Yes: lower extremeties--right worse than left Angina Yes Cardiac Arrhythmia Yes: History of Afib Coronary Artery Disease Yes Hypertension Yes Sleep Apnea Yes Diabetes Mellitus Type 1 Yes Diabetes Mellitus Type 2 Yes Other GI Yes: SPAGALIAN HERNIA Hx Kidney Stones Yes Osteoarthritis Yes Surgical History: 1. Strabismus operation in 1967 at [facility] at [place], [place]. 2. Spigelian hernia repair in 1971 at [facility] at [place], [place]. 3. Four lithotripsy procedures between April 1993 and April 1995 at [facility] at [place], [place]. 4. Left shoulder bursectomy operation in 2001 at [place], [place]. 5. Cardiac catheterization in 2005 at the [facility] at [place], [place]. Findings at this cardiac catheterization procedure were normal. 6. One or two more lithotripsy operations in April 2005 at [place], [place]. 7. Left total knee replacement on 05/25/[address] Robinson Palafox at [facility] at [place], [place]. 8. Colonoscopy with polypectomy on 07/19/2012 at [facility] at [place], [place]. The patient had three adenomatous polyps removed from the sigmoid colon and one adenomatous polyp removed from the rectum at this time. 9. Transesophageal echocardiogram and direct current cardioversion of atrial fibrillation to sinus rhythm on [address] Ayala at [facility] at [place], [place]. Discharge diagnoses for this hospitalization were atrial fibrillation with rapid ventricular response converted to normal sinus rhythm, type 2 diabetes mellitus , dyslipidemia, gastroesophageal reflux disease, osteoarthritis and morbid obesity with BMI of 49. 10. Cardiac catheterization on 09/02/[address] Ayala at [facility] at [place], [place]. The patient had normal left ventricular systolic function with an ejection fraction of about 65%. There was no significant coronary artery disease. 11. Cardiac ablation on by Dr. Mayberry at [facility] at [place], [place]. 12. Transesophageal echocardiogram and direct current cardioversion on 08/09/[address] Ayala at [facility] at [place], [place]. The patient had normal left ventricular systolic function with an ejection fraction of 65%. There was mild mitral regurgitation. There was mild tricuspid regurgitation. The patient has either a patent foramen ovale or a small atrial septal defect. Discharge diagnosis for this hospitalization was atrial fibrillation with rapid ventricular response. 13. Excision of basal cell skin carcinoma at right side of face with closure of the excision site with a rhomboid (Limberg) transposition flap on 09/13/[address] Morales at [facility] at [place], [place]. Postoperative diagnosis was basal cell skin carcinoma at right side of face. - Social History Smoking status: Never smoker Substance use type: does not use Alcohol intake frequency: does not drink Does patient use chewing tobacco?: No Physical Exam - Limitations Limitations: no limitations - General General appearance: alert, in no apparent distress - ENT ENT exam: Present: normal oropharynx, mucous membranes moist - Chest Chest inspection: Present: symmetric chest wall rise. Absent: tenderness, rash - Respiratory Respiratory exam: Present: normal lung sounds bilaterally. Absent: respiratory distress, wheezes, stridor - Cardiovascular Cardiovascular exam: Present: tachycardia, irregular rhythm - Abdominal Exam Abdominal exam: Present: soft. Absent: distention, tenderness - Extremities Exam Extremities exam: Absent: full ROM, tenderness - Back Exam Back exam: Present: full ROM. Absent: tenderness - Skin Skin exam: Present: warm, dry - Neurological Exam Neurological exam: Present: alert, oriented X3 - Psychiatric Psychiatric exam: Present: normal affect, normal mood Course Vital Signs Pulse Rate 200 H 11/01/16 20:41 Respiratory Rate 20 11/01/16 20:41 Blood Pressure 127/83 11/01/16 20:41 Pulse Oximetry 96 11/01/16 20:41 Pulse Rate 111 H 11/01/16 21:30 Respiratory Rate 28 H 11/01/16 21:30 Blood Pressure 113/78 11/01/16 21:30 Pulse Oximetry 96 11/01/16 21:30 Cardiac General - MDM Narrative Medical decision making narrative: Discussed case with Yael, insect control inspector for Dr. Ayala's group, admit to the CCU - Differential Diagnosis Differential diagnosis: Likely: palpitations, anxiety, sinus tachycardia, artial fibrillation, artial flutter, ventricular premature beats, supraventricular tachycardia, ventricular tachycardia, WPW - Medical Records Attestation: I reviewed the patient's medical records. - Lab Data Attestation: I reviewed the patient's lab results. Result diagrams: 11/01/16 21:06 11/01/16 21:06 Lab Results 11/01/16 11/01/16 11/01/16 Range/Units 21:06 21:06 21:06 WBC 10.3 (4.5-11.0) T/MM3 RBC 5.27 (4.50-5.90) M/MM3 Hgb 15.7 (13.5-17.5) GM/DL Hct 45.3 (41-53) % MCV 86.0 (80-100) UM3 MCH 29.8 (26-34) UUG MCHC 34.7 (31-37) GM/DL RDW Std Deviation 39.8 (36.9-50.2) FL Plt Count 209 (130-400) T/MM3 MPV 10.4 (9.4-12.4) UM3 Immature Gran % (Auto) 0.3 (0.0-0.5) % Neut % (Auto) 71.9 H (33-66) % Lymph % (Auto) 20.1 L (23-45) % [place] % (Auto) 6.0 (0-9.0) % Eos % (Auto) 1.5 (0-4) % Baso % (Auto) 0.2 (0-2) % Neut # 7.4 (1.8-7.7) T/MM3 Lymph # 2.1 (1-4.8) T/MM3 [place] # 0.6 (0-0.8) T/MM3 Eos # 0.2 (0-0.5) T/MM3 Baso # 0.0 (0-0.2) T/MM3 Abs Immat Gran (auto) 0.03 (0.00-0.03) T/MM3 Turbidity < 20 (0-20) Sodium 147 H (134-144) MEQ/L Potassium 3.7 (3.6-5) MEQ/L Chloride 110 H (98-107) MEQ/L Carbon Dioxide 24 (22-30) MEQ/L Anion Gap 13 (5-15) MEQ/L BUN 18.0 (9-20) MG/DL Creatinine 1.1 (0.8-1.5) MG/DL GFR Calculation 69 BUN/Creatinine Ratio 16 (6-26) RATIO Glucose 191 H (75-110) MG/DL Calculated Osmolality 289 H (261-280) MOSM/KG Calcium 8.8 (8.4-10.2) MG/DL Magnesium 1.9 (1.6-2.3) MG/DL Total Bilirubin 1.60 H (0.20-1.30) MG/DL Icterus Index < 2 (0-7) AST 25 (17-59) U/L ALT 45 (21-72) U/L Alkaline Phosphatase 58 (38-126) U/L Troponin I 0.018 (0-0.12) ng/ml B-Natriuretic Peptide 390 H (0-175) pg/mL Total Protein 6.6 (6.3-8.2) G/DL Albumin 4.0 (3.5-5.0) G/DL Globulin 2.6 (2.4-3.6) G/DL Albumin/Globulin Ratio 1.5 (1.1-2.2) RATIO TSH 2.06 (0.47-4.68) MIU/L Specimen Hemolysis < 15 (0-25) - Radiology Data Attestation: I reviewed the patient's radiology results. - EKG Data EKG #1 EKG attestation: Yes: I reviewed and interpreted this EKG. Rate: tachycardia Rhythm: A. flutter Mcbh [place]/QRS: normal When compared to previous EKG there are: no significant changes EKG #2 EKG attestation: Yes: I reviewed and interpreted this EKG. Rate: tachycardia Rhythm: A. flutter Mcbh [place]/QRS: normal Interpretation: no acute changes Disposition Clinical Impression: Atrial fibrillation with RVR Disposition: To [facility] Condition: Stable Prescriptions: No Action Furosemide 40 mg PO DAILY #0 Potassium Citrate [Urocit-K] 1 tab PO TID #90 tab Potassium Chloride 20 meq PO DAILY #0 tab Metformin Xr [Glucophage Xr] 750 mg PO BID #0 Insulin Aspart [Novolog] 15 unit SQ TID Simvastatin 40 mg PO HS #0 L.acidoph,Paracasei, B.lactis [Probiotic] 1 cap PO BID #0 Nitroglycerin 0.4 mg SL PRN PRN #0 tab PRN Reason: CHEST TIGHTNESS Liraglutide [Victoza 3-Barry] 1.8 units SQ QAM #9 Insulin Glargine,Hum.rec.anlog [Toujeo Solostar] 80 unit SQ HS #0 Sotalol HCl [Betapace] 0.5 tab PO BID aspirin 81 mg tablet,delayed release 81 mg PO DAILY tab Referrals: Castro Spencer MD [Family Provider] - Time of Disposition: 22:02 - Seen By: physician
[2016-11-01] MEDS ORDERED: DiltiaZEM 25 MG/5 ML INJECTION IV ONE (20:49)
[2016-11-01] MEDS ORDERED: DiltiaZEM Drip 125 MG in NS 100 ML IV SCH (21:00)
[2016-11-01 22:52] VITALS: BMI 46.9
[2016-11-02] MEDS ORDERED: APIXABAN 5 MG TABLET PO SCH (00:30)
[2016-11-02] MEDS ORDERED: AMIODARONE 900 MG in NS 500ml 500 ML IV SCH ×2 (01:08→07:08)
[2016-11-02] MEDS ORDERED: AMIODARONE 150 MG in NS 100 ML IV ONE (01:08)
[2016-11-02] MEDS ORDERED: DiltiaZEM Drip 125 MG in NS 100 ML IV SCH (03:29)
--- NOTE | 2016-11-02 07:27 | XRay Report ---
Indication: chest discomfort atrial fib PROCEDURE: XR chest 1V: Encounter: Initial Comparison: 06/16/2015 Findings: A single frontal chest radiograph is submitted and the lungs are clear, the heart is unenlarged, and there is no pleural fluid. Trachea midline. No pulmonary vascular engorgement. Degenerative changes of the osseous elements, age compatible. Monitor leads overlie the chest. Impression: Negative for acute cardiopulmonary abnormality. .
[2016-11-02] MEDS ORDERED: INSULIN ASPART 100unit/ml INJECTION SQ SCH (09:00)
[2016-11-02] MEDS ORDERED: FentaNYL 100 MCG/2 ML INJECTION IVP ONE (09:13)
[2016-11-02] MEDS ORDERED: MIDAZOLAM 2mg/2ml INJECTION IVP ONE (09:13)
--- NOTE | 2016-11-02 12:08 | Cardiology History & Physical ---
History of Present Illness Chief complaint: palpitations HPI: Epifanio is a 56 year old male who is well known to Dr. Ayala who has a history paroxysmal atrial fibrillation. mixed HLD and DM type II who was admitted to CCU last night from the ED with A Fib with RVR. Yesterday evening he had pounding palpitations with tachycardia similar to atrial fibrillation with RVR in the past, but much more severe. He has been on Sotalol for antiarrhythmic therapy. He is NPO for DCCV later today. Review of Systems - Constitutional Constitutional: Absent: chills, fatigue, fever(s) - EENMT Eyes: Absent: change in vision Balance: Absent: vertigo Mouth/Throat: Absent: sore throat - Cardiovascular Cardiovascular: Present: palpitations. Absent: chest pain, syncope, orthopnea Vascular: Absent: pedal edema - Respiratory Respiratory: Absent: cough, dyspnea - Gastrointestinal Gastrointestinal: Absent: diarrhea, nausea, vomiting - Genitourinary Genitourinary: Absent: dysuria - Integumentary/Breasts Integumentary: Absent: rash - Neurological Neurological: Absent: dizziness - Endocrine Endocrine: Present: palpitations PFSH Patient Stated Medical History Peripheral Neuropathy Yes: lower extremeties--right worse than left Angina Yes Cardiac Arrhythmia Yes: History of Afib Coronary Artery Disease Yes Hypertension Yes: Has not been on HTN meds since 2006 Sleep Apnea Yes Diabetes Mellitus Type 2 Yes Other GI Yes: Spagalian Hernia 1971 Hx Kidney Stones Yes Osteoarthritis Yes Surgical History: 1. Strabismus operation in 1967 at [facility] at [place], [place]. 2. Spigelian hernia repair in 1971 at [facility] at [place], [place]. 3. Four lithotripsy procedures between April 1993 and April 1995 at [facility] at [place], [place]. 4. Left shoulder bursectomy operation in 2001 at [place], [place]. 5. Cardiac catheterization in 2005 at the [facility] at [place], [place]. Findings at this cardiac catheterization procedure were normal. 6. One or two more lithotripsy operations in April 2005 at [place], [place]. 7. Left total knee replacement on 05/25/[address] Robinson Palafox at [facility] at [place], [place]. 8. Colonoscopy with polypectomy on 07/19/2012 at [facility] at [place], [place]. The patient had three adenomatous polyps removed from the sigmoid colon and one adenomatous polyp removed from the rectum at this time. 9. Transesophageal echocardiogram and direct current cardioversion of atrial fibrillation to sinus rhythm on [address] Ayala at [facility] at [place], [place]. Discharge diagnoses for this hospitalization were atrial fibrillation with rapid ventricular response converted to normal sinus rhythm, type 2 diabetes mellitus , dyslipidemia, gastroesophageal reflux disease, osteoarthritis and morbid obesity with BMI of 49. 10. Cardiac catheterization on 09/02/[address] Ayala at [facility] at [place], [place]. The patient had normal left ventricular systolic function with an ejection fraction of about 65%. There was no significant coronary artery disease. 11. Cardiac ablation on by Dr. Mayberry at [facility] at [place], [place]. 12. Transesophageal echocardiogram and direct current cardioversion on 08/09/[address] Ayala at [facility] at [place], [place]. The patient had normal left ventricular systolic function with an ejection fraction of 65%. There was mild mitral regurgitation. There was mild tricuspid regurgitation. The patient has either a patent foramen ovale or a small atrial septal defect. Discharge diagnosis for this hospitalization was atrial fibrillation with rapid ventricular response. 13. Excision of basal cell skin carcinoma at right side of face with closure of the excision site with a rhomboid (Limberg) transposition flap on 09/13/[address] Morales at [facility] at [place], [place]. Postoperative diagnosis was basal cell skin carcinoma at right side of face. - Social History Smoking status: Never smoker Substance use type: does not use Alcohol intake frequency: holidays/special occasions only Household members: spouse Current occupational status: retired Current residence: Apartment/Private Home Medications Home Medications Medication Instructions Recorded Confirmed Type Furosemide 40 mg PO DAILY #0 06/16/15 11/02/16 History L.acidoph,Paracasei, B.lactis 1 cap PO BID #0 06/16/15 11/01/16 History [Probiotic] Simvastatin 40 mg PO HS #0 06/16/15 11/01/16 History Potassium Citrate [Urocit-K] 1 tab PO TID #90 tab 07/01/15 11/01/16 History Nitroglycerin 0.4 mg SL PRN PRN #0 tab 09/01/15 11/01/16 History Potassium Chloride 20 meq PO DAILY #0 tab 09/02/15 11/01/16 History Insulin Glargine,Hum.rec.anlog 80 unit SQ HS #0 08/08/16 11/01/16 History [Toujeo Solostar] Liraglutide [Victoza 3-Barry] 1.8 units SQ QAM #9 08/08/16 11/01/16 History Metformin Xr [Glucophage Xr] 750 mg PO BID #0 08/08/16 11/01/16 History Insulin Aspart [Novolog] 15 unit SQ TID 09/12/16 11/01/16 History Allergies Allergy/AdvReac Type Severity Reaction Status Date / Time Sulfa (Sulfonamide Allergy Severe ANAPHYLAXIS Verified 11/01/16 21:29 Antibiotics) Exam Vital signs: Temperature 97.7 F 11/02/16 08:00 Pulse Rate 109 H 11/02/16 10:15 Respiratory Rate 19 11/02/16 10:15 Blood Pressure 145/90 H 11/02/16 10:15 Pulse Oximetry 96 11/02/16 10:15 Oxygen Delivery Method Room Air Oxygen Flow Rate 2 - Constitutional no acute distress, obese, cooperative - Routine HEENT Exam Head: Present: normocephalic - Routine Neck Exam Absent: JVD, carotid bruit - Routine Chest/Breast/Axilla Exam Chest wall: Absent: tenderness - Routine Respiratory Exam Present: CTA bilaterally. Absent: rales, wheezes - Routine Cardiovascular Exam Present: no murmur, tachycardia, irregularly irregular. Absent: JVD - Routine Abdominal Exam Present: soft, normoactive bowel sounds - Routine Extremities Exam Present: no edema - Routine Skin Exam Present: intact, dry, warm - Routine Neurological Exam Present: alert, oriented X3 - Routine Psychiatric Exam Present: normal affect, normal thought process Results 11/03/16 04:58 11/03/16 04:58 Intake and Output 11/01/16 11/02/16 11/02/16 22:59 06:59 14:59 Intake Total 1621.875 / 1621.875 165.163 / 165.163 Balance 1621.875 / 1621.875 165.163 / 165.163 Intake: IV 1321.875 / 1321.875 165.163 / 165.163 Amiodarone 150 mg In 103 / 103 Normal Saline 100 ml @ 618 mls/hr IV O ONE Rx#: [id number] Cordarone 900 mg In 138.875 / 138.875 116.663 / 116.663 Normal Saline 500 ml @ 0. 5 MG/MIN 16.66 mls/hr IV .Q24H ANGELIC Rx#:[id number] Cardizem IV 125 mg In 80 / 80 48.500 / 48.500 Normal Saline 100 ml @ 125 mls/hr IV .Q1H ANGELIC Rx #:[id number] Normal Saline 1,000 ml @ 1000 / 1000 1000 mls/hr IV .Q1H ONE Rx#:[id number] Oral 300 / 300 0 / 0 Other: # Voids 1 Weight 308 lb 13.882 oz 308 lb 13.882 oz Patient Weight 11/03/16 06:59 Weight 308 lb 13.882 oz Laboratory Results - last 48 hr 11/01/16 11/01/16 11/01/16 21:06 21:06 21:06 WBC 10.3 RBC 5.27 Hgb 15.7 Hct 45.3 MCV 86.0 MCH 29.8 MCHC 34.7 RDW Std Deviation 39.8 Plt Count 209 MPV 10.4 Immature Gran % (Auto) 0.3 Neut % (Auto) 71.9 H Lymph % (Auto) 20.1 L Bradley % (Auto) 6.0 Eos % (Auto) 1.5 Baso % (Auto) 0.2 Neut # 7.4 Lymph # 2.1 Bradley # 0.6 Eos # 0.2 Baso # 0.0 Abs Immat Gran (auto) 0.03 Turbidity < 20 Sodium 147 H Potassium 3.7 Chloride 110 H Carbon Dioxide 24 Anion Gap 13 BUN 18.0 Creatinine 1.1 GFR Calculation 69 BUN/Creatinine Ratio 16 Glucose 191 H Calculated Osmolality 289 H Calcium 8.8 Magnesium 1.9 Total Bilirubin 1.60 H Icterus Index < 2 AST 25 ALT 45 Alkaline Phosphatase 58 Troponin I 0.018 B-Natriuretic Peptide 390 H Total Protein 6.6 Albumin 4.0 Globulin 2.6 Albumin/Globulin Ratio 1.5 TSH 2.06 Specimen Hemolysis < 15 - Imaging and Cardiology EKG results: image reviewed Imaging & Cardiology Narrative: Date of Exam: 11/01/16 Ordering Provider: Aleksandar Lopez MD Type of Exam(s): XR chest 1V Reason for Exam(s): chest discomfort atrial fib Indication: chest discomfort atrial fib PROCEDURE: XR chest 1V: Encounter: Initial Comparison: 06/16/2015 Findings: A single frontal chest radiograph is submitted and the lungs are clear, the heart is unenlarged, and there is no pleural fluid. Trachea midline. No pulmonary vascular engorgement. Degenerative changes of the osseous elements, age compatible. Monitor leads overlie the chest. Impression: Negative for acute cardiopulmonary abnormality. 11/02/16 13:11 - EKG Interpretation EKG shows: atrial fibrillation EKG interpretations - EKG EKG shows: atrial fibrillation Hospital Course This is a general summary of the patient's hospital course. For more details refer to the complete medical record. Assessment and Plan (1) Atrial fibrillation with RVR Current visit: Yes Status: Acute On Sotalol when had symptomatic A Fib with RVR, rate 180-190s upon evaluation in the ED. Rate slowed with Cardizem bolus and drip. Started on Amiodarone overnight. NPO for DCCV today. Successful DCCV. restart sotalol at 80mg po BID. Continue Eliquis 5mg po BID (2) Mixed hyperlipidemia Current visit: Yes Status: Acute (3) Type 2 diabetes mellitus without complications Current visit: Yes Status: Acute - Attestation Attestation Narrative: 11/03/16 14:06 Recommendation After examining the patient I agree with the above assessment. I am involved in the formulation of the patient's plan of care. Sepsis Assessment - Evaluation Sepsis screening result: No Definite Risk
[2016-11-02] MEDS ORDERED: NITROGLYCERIN 0.4 MG SUBLINGUAL TABLET SL PRN (13:14)
[2016-11-02] MEDS: INSULIN ASPART 100unit/ml INJECTION SQ SCH ×3 (13:33→17:01)
--- NOTE | 2016-11-02 16:04 | DC Cardioversion ---
DATE OF PROCEDURE November 02, 2016 INDICATIONS The patient is a 56-year-old gentleman with history of atrial fibrillation who was admitted with symptomatic atrial fibrillation which started this morning and was referred for DC cardioversion. INFORMED CONSENT Informed consent was obtained after explaining the procedure and the potential risks to the patient who agreed to proceed with the procedure. PROCEDURE 1. DC cardioversion. Conscious sedation was performed using Versed and fentanyl. Anterior-posterior Zoll pads were applied. 360 joules of energy were delivered in synchronized manner and patient converted from atrial fibrillation to sinus rhythm. He tolerated the procedure well with no complications. IMPRESSION 1. Successful DC cardioversion of atrial fibrillation to sinus rhythm. PLAN Will keep him on anticoagulation and antiarrhythmics and have him follow up in future. Will consider referring him for repeat ablation in future. GWEN
[2016-11-02] MEDS ORDERED: SOTALOL 80 MG PO SCH (17:30)
[2016-11-02] MEDS: APIXABAN 5 MG TABLET PO SCH ×2 (17:43→21:54)
[2016-11-02] MEDS: POTASSIUM CITRATE PO SCH (17:50)
[2016-11-02] MEDS: SOTALOL 80 MG TABLET PO SCH (17:50)
[2016-11-02] MEDS ORDERED: METFORMIN 750 MG PO SCH (18:00)
[2016-11-02] MEDS ORDERED: SOTALOL 80 MG TABLET PO SCH (21:00)
[2016-11-02] MEDS ORDERED: INSULIN GLARGINE 100unit/ml INJECTION SQ SCH (22:00)
[2016-11-02] MEDS ORDERED: SIMVASTATIN 40 MG PO SCH (22:00)
[2016-11-03 00:22] VITALS: O2SAT 97
[2016-11-03] MEDS ORDERED: POTASSIUM CHLORIDE 20 MEQ PO SCH (08:00)
[2016-11-03] MEDS: APIXABAN 5 MG TABLET PO SCH (08:48)
[2016-11-03] MEDS: POTASSIUM CITRATE PO SCH (08:51)
[2016-11-03] MEDS: SOTALOL 80 MG TABLET PO SCH (08:51)
[2016-11-03] MEDS ORDERED: FUROSEMIDE 40 MG PO SCH (09:00)
[2016-11-03] MEDS ORDERED: LIRAGLUTIDE INJECTABLE PEN SQ SCH (09:00)
[2016-11-03] MEDS ORDERED: **POM**ASPIRIN 81 MG CHEWABLE TABLET PO SCH (09:00)
[2016-11-03] MEDS: INSULIN ASPART 100unit/ml INJECTION SQ SCH (09:01)
[2016-11-03 10:43] VITALS: BP 145/98; RESP 21
[2016-11-03 10:44] VITALS: TEMP 98.7
--- NOTE | 2016-11-03 12:18 | Discharge Summary ---
<Christiana Ramos - Last Filed: 11/03/16 13:00> Discharge Information Date of admission: 11/02/16 17:31 Anticipated date of discharge: 11/03/16 Attending Physician: Martin Ayala MD Primary care physician: Trudy Spencer MD - Discharge Diagnosis Discharge Diagnosis: Atrial fibrillation - Procedures Procedures: DATE OF PROCEDURE November 02, 2016 INDICATIONS The patient is a 56-year-old gentleman with history of atrial fibrillation who was admitted with symptomatic atrial fibrillation which started this morning and was referred for DC cardioversion. INFORMED CONSENT Informed consent was obtained after explaining the procedure and the potential risks to the patient who agreed to proceed with the procedure. PROCEDURE 1. DC cardioversion. Conscious sedation was performed using Versed and fentanyl. Anterior-posterior Zoll pads were applied. 360 joules of energy were delivered in synchronized manner and patient converted from atrial fibrillation to sinus rhythm. He tolerated the procedure well with no complications. IMPRESSION 1. Successful DC cardioversion of atrial fibrillation to sinus rhythm. PLAN Will keep him on anticoagulation and antiarrhythmics and have him follow up in future. Will consider referring him for repeat ablation in future. - Laboratory Labs: 11/03/16 04:58 11/03/16 04:58 - Radiology Radiology: Date of Exam: 11/01/16 Ordering Provider: Aleksandar Lopez MD Type of Exam(s): XR chest 1V Reason for Exam(s): chest discomfort atrial fib Indication: chest discomfort atrial fib PROCEDURE: XR chest 1V: Encounter: Initial Comparison: 06/16/2015 Findings: A single frontal chest radiograph is submitted and the lungs are clear, the heart is unenlarged, and there is no pleural fluid. Trachea midline. No pulmonary vascular engorgement. Degenerative changes of the osseous elements, age compatible. Monitor leads overlie the chest. Impression: Negative for acute cardiopulmonary abnormality. History of Present Illness HPI: Epifanio is a 56 year old male who is well known to Dr. Ayala who has a history paroxysmal atrial fibrillation. mixed HLD and DM type II who was admitted to CCU last night from the ED with A Fib with RVR. Yesterday evening he had pounding palpitations with tachycardia similar to atrial fibrillation with RVR in the past, but much more severe. He has been on Sotalol for antiarrhythmic therapy. He is NPO for DCCV later today. Hospital Course This is a general summary of the patient's hospital course. For more details refer to the complete medical record. Time spent with patient: 25 - 35 minutes DVT Prophylaxis: Eliquis Exam Vital signs: Temperature 98.7 F 11/03/16 10:43 Pulse Rate 78 11/03/16 10:30 Respiratory Rate 21 11/03/16 10:30 Blood Pressure 145/98 H 11/03/16 10:00 Pulse Oximetry 97 11/03/16 10:30 Oxygen Delivery Method Room Air Oxygen Flow Rate 2 - Constitutional no acute distress, obese, cooperative - Routine HEENT Exam Head: Present: normocephalic ENT: Present: mucous membranes moist - Routine Neck Exam Absent: JVD, carotid bruit - Routine Chest/Breast/Axilla Exam Chest wall: Absent: tenderness - Routine Respiratory Exam Present: CTA bilaterally. Absent: rales, wheezes - Routine Cardiovascular Exam Present: RRR, no murmur. Absent: JVD - Routine Abdominal Exam Present: soft, normoactive bowel sounds - Routine Extremities Exam Present: no edema - Routine Skin Exam Present: intact, dry, warm - Routine Neurological Exam Present: alert, oriented X3 - Routine Psychiatric Exam Present: normal affect, normal thought process Results 11/03/16 04:58 11/03/16 04:58 CBC 11/03/16 Range/Units 04:58 WBC 8.0 (4.5-11.0) T/MM3 RBC 4.67 (4.50-5.90) M/MM3 Hgb 13.7 D (13.5-17.5) GM/DL Hct 41.4 (41-53) % Plt Count 154 (130-400) T/MM3 Comprehensive Metabolic Panel 11/03/16 Range/Units 04:58 Sodium 144 (134-144) MEQ/L Potassium 3.8 (3.6-5) MEQ/L Chloride 109 H (98-107) MEQ/L Carbon Dioxide 27 (22-30) MEQ/L BUN 19.0 (9-20) MG/DL Creatinine 0.8 D (0.8-1.5) MG/DL Glucose 113 H (75-110) MG/DL Calcium 8.8 (8.4-10.2) MG/DL Intake and Output 11/02/16 11/03/16 11/03/16 22:59 06:59 14:59 Intake Total 480 / 480 Balance 480 / 480 Intake: Oral 480 / 480 Other: # Voids 2 2 # Bowel Movements 1 Weight 309 lb 4.937 oz Patient Weight 11/04/16 06:59 Weight 309 lb 4.937 oz Laboratory Results - last 48 hr 11/01/16 11/01/16 11/01/16 21:06 21:06 21:06 WBC 10.3 RBC 5.27 Hgb 15.7 Hct 45.3 MCV 86.0 MCH 29.8 MCHC 34.7 RDW Std Deviation 39.8 Plt Count 209 MPV 10.4 Immature Gran % (Auto) 0.3 Neut % (Auto) 71.9 H Lymph % (Auto) 20.1 L Campbell % (Auto) 6.0 Eos % (Auto) 1.5 Baso % (Auto) 0.2 Neut # 7.4 Lymph # 2.1 Campbell # 0.6 Eos # 0.2 Baso # 0.0 Abs Immat Gran (auto) 0.03 Turbidity < 20 Sodium 147 H Potassium 3.7 Chloride 110 H Carbon Dioxide 24 Anion Gap 13 BUN 18.0 Creatinine 1.1 GFR Calculation 69 BUN/Creatinine Ratio 16 Glucose 191 H Calculated Osmolality 289 H Calcium 8.8 Magnesium 1.9 Total Bilirubin 1.60 H Icterus Index < 2 AST 25 ALT 45 Alkaline Phosphatase 58 Troponin I 0.018 B-Natriuretic Peptide 390 H Total Protein 6.6 Albumin 4.0 Globulin 2.6 Albumin/Globulin Ratio 1.5 TSH 2.06 Specimen Hemolysis < 15 11/03/16 11/03/16 04:58 04:58 WBC 8.0 RBC 4.67 Hgb 13.7 D Hct 41.4 MCV 88.7 MCH 29.3 MCHC 33.1 RDW Std Deviation 40.9 Plt Count 154 MPV 10.7 Immature Gran % (Auto) Neut % (Auto) Lymph % (Auto) Campbell % (Auto) Eos % (Auto) Baso % (Auto) Neut # Lymph # Campbell # Eos # Baso # Abs Immat Gran (auto) Turbidity < 20 Sodium 144 Potassium 3.8 Chloride 109 H Carbon Dioxide 27 Anion Gap 8 BUN 19.0 Creatinine 0.8 D GFR Calculation 100 BUN/Creatinine Ratio 24 Glucose 113 H Calculated Osmolality 280 Calcium 8.8 Magnesium Total Bilirubin Icterus Index < 2 AST ALT Alkaline Phosphatase Troponin I B-Natriuretic Peptide Total Protein Albumin Globulin Albumin/Globulin Ratio TSH Specimen Hemolysis < 15 - Imaging and Cardiology EKG results: image reviewed - EKG Interpretation EKG: sinus rhythm Discharge Plan - Med Rec/Dispo Referrals/Follow Up: Martin Ayala MD [Physician] - 12/06/16 9:50 am Additional Instructions: -Get Holter monitor from Dr. Ayala's office on 11/29/16 at 1:00. -Follow up appointment with Dr. Garcia on November 04 at 11:00. Prescriptions: New Apixaban [Eliquis] 5 mg PO BID #60 tablet Sotalol [Betapace] 80 mg PO BIDWM #60 tablet Continue Furosemide 40 mg PO DAILY #0 Potassium Citrate [Urocit-K] 1 tab PO TID #90 tab Potassium Chloride 20 meq PO DAILY #0 tab Metformin Xr [Glucophage Xr] 750 mg PO BID #0 Insulin Aspart [Novolog] 15 unit SQ TID Simvastatin 40 mg PO HS #0 L.acidoph,Paracasei, B.lactis [Probiotic] 1 cap PO BID #0 Nitroglycerin 0.4 mg SL PRN PRN #0 tab PRN Reason: CHEST TIGHTNESS Liraglutide [Victoza 3-Barry] 1.8 units SQ QAM #9 Insulin Glargine,Hum.rec.anlog [Toujeo Solostar] 80 unit SQ HS #0 Discontinued Sotalol HCl [Betapace] 0.5 tab PO BID aspirin 81 mg tablet,delayed release 81 mg PO DAILY tab - Disposition 01 Discharged Home, Self-Care <Martin Ayala - Last Filed: 11/07/16 13:14> Discharge Information Date of admission: 11/02/16 17:31 Attending Physician: Martin Ayala MD Primary care physician: Trudy Spencer MD - Laboratory Labs: 11/03/16 04:58 11/03/16 04:58 Hospital Course This is a general summary of the patient's hospital course. For more details refer to the complete medical record. Exam Vital signs: Temperature 98.7 F 11/03/16 10:43 Pulse Rate 84 11/03/16 12:00 Respiratory Rate 21 11/03/16 10:30 Blood Pressure 145/98 H 11/03/16 10:00 Pulse Oximetry 97 11/03/16 10:30 Oxygen Delivery Method Room Air Oxygen Flow Rate 2 Results 11/03/16 04:58 11/03/16 04:58 Discharge Plan - Med Rec/Dispo - Attestation Attestation Narrative: 11/07/16 13:13 Recommendation After examining the patient I agree with the above assessment. I am involved in the formulation of the patient's plan of care.
[2016-11-03 13:06] VITALS: PULSE 84
== END 2016-11-03 13:30 | disposition home or self-care (01) | DRG 310 ==
LOC: CCU 20:41 → ED 20:41 → CCU 22:20
PROVIDERS: ADMIT Internal Medicine Cardiovascular Disease; ATTEND Internal Medicine Cardiovascular Disease